=== PATIENT | female | born 1990 | race Caucasian/White ===

== ENCOUNTER 2018-05-14 13:53 | Emergency (ER) | payer OTHER, SELFPAY ==
[2018-05-14 13:53] VITALS: BP 135/74; PULSE 104; RESP 18; TEMP 37.7; O2SAT 97; BMI 34.2
--- NOTE | 2018-05-14 14:09 | EKG12_ITS ---
Test Reason : SOB Blood Pressure : / mmHG Vent. Rate : 095 BPM Atrial Rate : 095 BPM P-R Int : 132 ms QRS Dur : 082 ms QT Int : 346 ms P-R-T Axes : 049 010 -03 degrees QTc Int : 434 ms Normal sinus rhythm Normal ECG Confirmed by LEILANI BRASWELL, LILIANA ([id number]), publication editor NEGRA MAC ([id number]) on 05/20/2018 2:49:14 PM Referred By: AMA Confirmed By:LILIANA DUKE MD
--- NOTE | 2018-05-14 14:15 | RAD_ITS ---
STUDY: X-RAY CHEST REASON FOR EXAM: Female, 27 years old. Chest tightness. Shortness of breath. TECHNIQUE: Single AP portable view of the chest. COMPARISON: Comparison is made with prior study of January 15, 2017. FINDINGS: EKG electrodes are seen. The lungs are clear and expanded. There is no demonstrated pleural abnormality. Normal size heart. Normal mediastinum and vignesh. Normal visualized pulmonary arteries. Normal visualized aortic arch and descending thoracic aorta. Normal visualized thoracic spine. Normal visualized ribs, clavicles, and shoulders. There is no demonstrated abnormality of the visualized soft tissue structures of the upper abdomen. RAD/Chest 1 View (Portable) IMPRESSION: Normal x-ray examination of the chest. Electronically Signed: Byron Simental MD at 14:34 EDT Tel [phone], Service support ,
[2018-05-14 14:26] VITALS: BP 126/73; PULSE 99; RESP 23; O2SAT 96
[2018-05-14 14:30] LABS: Hematocrit 37.7 % (37-47); Hemoglobin 13.1 g/dl (12.0-15.0); Mean Corp Hgb Conc 34.7 g/gl (32-36); Mean Corpuscular Hgb 29.8 pg (27.0-32.0); Mean Corpuscular Volume 85.7 fL (81-99); Mean Platelet Vol. 10.5 fl (6.2-12.0); Platelet Count 191 K/mm3 (150-450); RBC Distribution Width SD 40.7 fl (35.1-43.9); White Blood Count 11.3 K/mm3 (4.4-11.0)
[2018-05-14 14:31] LABS: Scan Indicated on CBC? Y/N NO
[2018-05-14 14:33] VITALS: O2SAT 95
[2018-05-14 14:44] LABS: ALB/GLOB Ratio 0.7 RATIO (0.9-2.4); AST(SGOT) 19 U/L (15-37); Alanine Aminotransfer ALT/SGPT 20 U/L (13-56); Albumin, Serum 2.7 g/dL (3.2-5.0); Alkaline Phosphatase 75 U/L (45-117); Anion Gap 10 (5-15); BUN 8 mg/dL (7-18); BUN/Creat Ratio 13.2 RATIO (10-20); Calcium,Total 8.2 mg/dL (8.5-10.1); Chloride 109 mmol/L (98-107); EST Glomerular Filtration Rate 126 mL/min (>60); Est Glom Filt Rate - Afr Amer 152 mL/min (>60); Estimated Creatinine Clearance 136.96 ml/min; Globulin 3.7 g/dL (2.2-4.2); Glucose 96 mg/dL (74-106); Potassium 3.8 mmol/L (3.5-5.1); Protein, Total 6.4 g/dL (6.4-8.2); Sodium Level 141 mmol/L (136-145)
[2018-05-14 14:48] LABS: Color, Urine Yellow (Yellow); Glucose, Dipstick Normal (Normal); Ketone-Dipstick 5 mg/dl (Negative); Leukocyte Esterase-Dipstick 100 /ul (Negative); Nitrite-Dipstick Negative (Negative); Occult Blood-Urine Negative /ul (Negative); Protein-Dipstick 15 mg/dl (Negative); Specific Gravity, Urine 1.025 (1.002-1.030); Urine Bilirubin Dipstick Negative (Negative); Urine Clarity Clear (Clear); Urine Urobilinogen 1 mg/dl (Normal)
[2018-05-14 14:58] LABS: BNP,B-Type NATRIURETIC PEPTIDE 13.4 pg/mL (0-100)
--- NOTE | 2018-05-14 16:10 | ED.VISSUMM ---
- ER Visit Summary Date of Service: 05/14/18 This patient was evaluated by Dr. Masters in the emergency department. This note was generated with [employer] dictation software. It may contain incorrect words, spelling, and punctuation that were not noted in review of the chart prior to signing ED Disposition - Plan for ED Patient: Disposition: Home or Assisted Living Chief Complaint: Shortness of Breath Instructions: ED Dyspnea Shortness of Breath Referrals: Monika Wang MD [STAFF PHYSICIAN] - 1 Day for another exam
[2018-05-14 16:11] VITALS: PULSE 105; RESP 18; O2SAT 94
[2018-05-14 16:37] VITALS: PULSE 101; RESP 17; O2SAT 97
--- NOTE | 2018-05-15 10:52 | ED.VISSUMM ---
- ER Visit Summary Date of Service: 05/15/18 Chief Complaint: Shortness of breath History of Present Illness: The patient is a [address] Monika Wang. She is a at 28 weeks. She reports she has shortness of breath that began today. States it is mild currently moderate at worst. Is worsened by exertion. Son change with laying flat. She denies any cough, fever, chills, chest pain, ankle swelling, or calf pain. She is asking if I think this is related to anxiety. Patient reports that she had this with her last as well. She denies any vaginal bleeding or discharge. She has normal movement at this time. She denies a headache. Physical Examination: Vitals: Stable. Afebrile. General: Well-nourished and well-developed. Head: Normocephalic atraumatic. Neck: Supple, no lymphadenopathy. No JVD. Nontender. Cardiovascular: Regular rate and rhythm. No murmurs. Respiratory: No respiratory distress. Clear to auscultation bilaterally. Abdominal: Soft, nontender, nondistended, normal bowel sounds. No guarding, rebound, or peritoneal signs. Gravid uterus. Back: Nontender. Extremities: Nontender, no edema. Skin: Normal color, no rash. Neurologic: Alert and oriented ?3. Cranial nerves II through XII are intact. Normal strength and sensation. Psych: Normal affect. Test Results: EKG is sinus at 95 with no acute changes. Troponins negative. PT MAJOR ASSEMBLY LINEMAN is normal. UA is negative other than protein. LFTs marked for an albumin of 2.7. Chem-7 more for chloride of 109 calcium 8.2. CBC is remarkable for white count 11.3. Chest x-ray is normal. Emergency Department Course and Treatment: Patient rested comfortably while in the emergency department. heart tones were 139. Patient has no chest pain or unilateral edema that would suggest a PE. I do not think that exposing her or her fetus the radiation of this is in her best interest. Treatment Plan: Patient was discussed with Nirmala Brumfield, covering for Dr. Wang, and would like the patient to follow-up in the office tomorrow. Patient is happy with this plan and feels improved. Return to the emergency department for any worsening symptoms. Disposition: To home in improved and stable condition. Impression: 1. Dyspnea. 2. Third trimester . This note was generated with [employer] dictation software. It may contain incorrect words, spelling, and punctuation that were not noted in review of the chart prior to signing ED Disposition - Plan for ED Patient: Disposition: Home or Assisted Living Chief Complaint: Shortness of Breath Instructions: ED Dyspnea Shortness of Breath Referrals: Monika Wang MD [STAFF PHYSICIAN] - 1 Day for another exam
--- NOTE | 2018-05-15 10:55 | ED.DCSUM_ITS ---
- ER Visit Summary Date of Service: 05/15/18 Chief Complaint: Shortness of breath History of Present Illness: The patient is a [address] Monika Wang. She is a at 28 weeks. She reports she has shortness of breath that began today. States it is mild currently moderate at worst. Is worsened by exertion. Son change with laying flat. She denies any cough, fever, chills, chest pain, ankle swelling, or calf pain. She is asking if I think this is related to anxiety. Patient reports that she had this with her last as well. She denies any vaginal bleeding or discharge. She has normal movement at this time. She denies a headache. Physical Examination: Vitals: Stable. Afebrile. General: Well-nourished and well-developed. Head: Normocephalic atraumatic. Neck: Supple, no lymphadenopathy. No JVD. Nontender. Cardiovascular: Regular rate and rhythm. No murmurs. Respiratory: No respiratory distress. Clear to auscultation bilaterally. Abdominal: Soft, nontender, nondistended, normal bowel sounds. No guarding, rebound, or peritoneal signs. Gravid uterus. Back: Nontender. Extremities: Nontender, no edema. Skin: Normal color, no rash. Neurologic: Alert and oriented ?3. Cranial nerves II through XII are intact. Normal strength and sensation. Psych: Normal affect. Test Results: EKG is sinus at 95 with no acute changes. Troponins negative. PT CREDIT COMPLIANCE OFFICER is normal. UA is negative other than protein. LFTs marked for an albumin of 2.7. Chem-7 more for chloride of 109 calcium 8.2. CBC is remarkable for white count 11.3. Chest x-ray is normal. Emergency Department Course and Treatment: Patient rested comfortably while in the emergency department. heart tones were 139. Patient has no chest pain or unilateral edema that would suggest a PE. I do not think that exposing her or her fetus the radiation of this is in her best interest. Treatment Plan: Patient was discussed with Nirmala Brumfield, covering for Dr. Wang, and would like the patient to follow-up in the office tomorrow. Patient is happy with this plan and feels improved. Return to the emergency department for any worsening symptoms. Disposition: To home in improved and stable condition. Impression: 1. Dyspnea. 2. Third trimester . This note was generated with [employer] dictation software. It may contain incorrect words, spelling, and punctuation that were not noted in review of the chart prior to signing ED Disposition - Plan for ED Patient: Disposition: Home or Assisted Living Chief Complaint: Shortness of Breath Instructions: ED Dyspnea Shortness of Breath Referrals: Monika Wang MD [STAFF PHYSICIAN] - 1 Day for another exam
== END 2018-05-14 16:43 | disposition home or self-care (01) ==
LOC: ED 14:23
PROVIDERS: Emergency Provider Emergency Medicine
DX: O26.893 Other specified pregnancy related conditions, third trimester (principal); R06.00 Dyspnea, unspecified; Z79.899 Other long term (current) drug therapy; Z3A.28 28 weeks gestation of pregnancy
CPT/HCPCS: 71045; 80053; 81002; 83880; 84484; 85027; 93005; 99284; A4216

== ENCOUNTER 2018-06-16 20:20 | Outpatient (CLI) | payer OTHER, SELFPAY ==
[2018-06-16 21:07] VITALS: BMI 35.2
[2018-06-16 21:11] LABS: Hematocrit 35.9 % (37-47); Hemoglobin 12.5 g/dl (12.0-15.0); International Normalized Ratio 0.9; Mean Corp Hgb Conc 34.8 g/gl (32-36); Mean Corpuscular Volume 86.3 fL (81-99); Mean Platelet Vol. 10.4 fl (6.2-12.0); Partial Thromboplast Time 25.5 Seconds (24.1-36.2); Platelet Count 183 K/mm3 (150-450); Prothrombin Time (Protime)PT. 12.6 SECONDS (11.7-14.9); RBC Distribution Width CV 13.3 % (11.6-14.6); RBC Distribution Width SD 41.3 fl (35.1-43.9); Red Blood Count 4.16 M/mm3 (4.2-5.4); Scan Indicated on CBC? Y/N NO; White Blood Count 12.5 K/mm3 (4.4-11.0)
[2018-06-16 21:16] LABS: AST(SGOT) 16 U/L (15-37); Alanine Aminotransfer ALT/SGPT 15 U/L (13-56); Creatinine, Serum 0.64 mg/dL (0.55-1.02); EST Glomerular Filtration Rate 118 mL/min (>60); Est Glom Filt Rate - Afr Amer 143 mL/min (>60); Uric Acid 4.1 mg/dL (2.6-6.0)
[2018-06-16 22:03] LABS: Protein, Urine (Random) < 6.0 mg/dL (<11.9)
--- NOTE | 2018-06-21 12:36 | OB.TRI.NOTE ---
- Problem List (1) False labor Status: Acute (2) Elevated blood pressure complicating , antepartum Status: Acute History of Present Illness Date of Service: 06/05/18 Was patient seen by the physician?: No Reason For Visit: R/O, ELEVATED BLOOD PRESSURE Final SILVIA Source: US <20 weeks Allergies amoxicillin [From Augmentin] Adverse Reaction (Verified 06/16/18 22:54) Diarrhea clavulanic acid [From Augmentin] Adverse Reaction (Verified 06/16/18 22:54) Diarrhea NST - FHR Rate Baby A Baseline: 120 Variability:: Moderate Accelerations:: 15 x 15 Decelerations:: Variable NST Reactive:: Yes Uterine Activity:: Irregular Impression/Plan A:Elevated Blood Pressure antepartum P: 1) Pre-e labs normal. D/C home 2) Follow up in office tomorrow
== END 2018-06-16 22:30 | disposition home or self-care (01) ==
LOC: WPOUT 20:26 → WP 20:26
PROVIDERS: Advanced Practice Midwife; Visit Provider Obstetrics & Gynecology
DX: O47.03 False labor before 37 completed weeks of gestation, third trimester (principal); O26.893 Other specified pregnancy related conditions, third trimester; R03.0 Elevated blood-pressure reading, without diagnosis of hypertension; R07.9 Chest pain, unspecified; Z3A.33 33 weeks gestation of pregnancy
CPT/HCPCS: 59025; 59050; 82565; 82570; 84156; 84450; 84460; 84550; 85027; 85610; 85730; 99218; G0378

== ENCOUNTER 2018-06-16 22:51 | Emergency (ER) | payer OTHER, SELFPAY ==
[2018-06-16 22:52] VITALS: BP 120/74; PULSE 96; RESP 16; TEMP 36.9; O2SAT 97; BMI 34.4
--- NOTE | 2018-06-17 00:19 | ED.DCSUM_ITS ---
- ER Visit Summary Date of Service: 06/17/18 Chief Complaint: Chest pain and right shoulder pain. History of Present Illness: The patient is a 27 F no senior past medical history. Ab0. Currently 33 weeks . Patient states that for the last 5 weeks she has had chest pain across her chest. She was seen ER and evaluation which was negative. She has never had a DVT or PE. She denies any recent travel or surgery. She is . She had a similar episode when she was before and then noninvasive studies of her lower extremities and had no signs of DVT at that time. She denies any pleuritic nature of the pain. She denies any significant shortness of breath. She denies any hemoptysis. She has a mild nonproductive cough. Denies any leg swelling or calf pain. She also has some right shoulder pain is atraumatic. She is right-hand dominant. Physical Examination: Well-appearing young female. Vital signs are stable afebrile. Pulse ox 97% room air no signs of hypoxia. No distress. H EENT exam unremarkable normal. Neck nontender no lymphadenopathy. Lungs clear to auscultation bilaterally. Heart regular rate and rhythm no murmur. Chest wall nontender. No ecchymosis or bruising. No subcu air. Abdomen is soft, nondistended normal bowel sounds no peritoneal signs. Gravid nontender uterus. The right upper quadrant is completely nontender. No Arceo sign. She is moving all 4 extremities. Neurovascular intact. Equal symmetrical radial pulses. Calves are nontender without edema or cords. No swelling in her lower extremities. Back nontender. Neurologic exam normal. She has full range of motion her right shoulder. There is no trauma. No redness or warmth. Test Results: EKG shows a sinus rhythm rate 94 with no acute abnormality and no change from prior EKG from May. Emergency Department Course and Treatment: At this time I do not feel patient needs any further workup. Clinically I do not think this is a DVT or PE. It is diffuse discomfort. The pain is not pleuritic. She has no hemoptysis. Her exam is benign. I did explain to her that gallbladder disease could cause of the right shoulder pain but she is absolutely no right upper quadrant tenderness at this time. Treatment Plan: Discharge home. Follow-up with her DIRECTOR QUALITY SYSTEMS doctor Monika Wang. Disposition: Discharge Impression: Chest pain uncertain etiology 33 weeks This note was generated with [employer] dictation software. It may contain incorrect words, spelling, and punctuation that were not noted in review of the chart prior to signing ED Disposition - Plan for ED Patient: Chief Complaint: Chest Pain Referrals: Care Physician,No Primary [Primary Care Provider] -
--- NOTE | 2018-06-17 00:19 | ED.DEP ---
ED Disposition - Plan for ED Patient: Disposition: Home or Assisted Living Chief Complaint: Chest Pain Instructions: ED Chest Pain Atypical Unkn Cause Referrals: Monika Wang MD [STAFF PHYSICIAN] - 3-5 Days if not improving Additional Instructions: Tylenol for any pain. Not improving follow-up with your ANALYST BUSINESS ANALYSIS. Return to ER feeling worse.
[2018-06-17 00:35] VITALS: BP 135/77; PULSE 95; RESP 16
== END 2018-06-17 00:37 | disposition home or self-care (01) ==
PROVIDERS: Emergency Provider Emergency Medicine
DX: O26.893 Other specified pregnancy related conditions, third trimester (principal); R07.9 Chest pain, unspecified; M25.511 Pain in right shoulder; Z3A.33 33 weeks gestation of pregnancy; Z79.899 Other long term (current) drug therapy
CPT/HCPCS: 93005; 99282; J7030

== ENCOUNTER 2018-07-21 17:34 | Outpatient (CLI) | payer OTHER, SELFPAY ==
[2018-07-21 17:59] VITALS: BMI 35.9
[2018-07-21 18:41] LABS: AST(SGOT) 13 U/L (15-37); Alanine Aminotransfer ALT/SGPT 14 U/L (13-56); Creatinine, Serum 0.88 mg/dL (0.55-1.02); EST Glomerular Filtration Rate 82 mL/min (>60); Est Glom Filt Rate - Afr Amer 99 mL/min (>60); Estimated Creatinine Clearance 93.38 ml/min; Uric Acid 4.7 mg/dL (2.6-6.0)
[2018-07-21 18:43] LABS: Hematocrit 37.6 % (37-47); Hemoglobin 12.7 g/dl (12.0-15.0); Mean Corp Hgb Conc 33.8 g/gl (32-36); Mean Corpuscular Volume 85.8 fL (81-99); Mean Platelet Vol. 10.9 fl (6.2-12.0); Platelet Count 179 K/mm3 (150-450); RBC Distribution Width CV 13.2 % (11.6-14.6); RBC Distribution Width SD 41.3 fl (35.1-43.9); Red Blood Count 4.38 M/mm3 (4.2-5.4); White Blood Count 11.5 K/mm3 (4.4-11.0)
[2018-07-21 18:46] LABS: Scan Indicated on CBC? Y/N NO
[2018-07-21 18:51] LABS: Prothrombin Time (Protime)PT. 12.9 SECONDS (11.7-14.9)
[2018-07-21 18:52] LABS: Partial Thromboplast Time 27.6 Seconds (24.1-36.2)
[2018-07-21 19:14] LABS: Protein, Urine (Random) 12.3 mg/dL (<11.9); Protein:Creat Ratio 102 mg/g CRE (0-200)
[2018-07-21] MEDS: DiphenhydrAMINE 50 MG/ML Syringe 25 MG IV (19:16)
[2018-07-21] MEDS: 0.9% NaCl Peripheral Flush Adult/Peds IV (19:17)
[2018-07-21] MEDS: Lactated Ringers 1,000 ML 999 ML IV (19:17)
--- NOTE | 2018-07-21 20:45 | NURSING ---
[facility] and evaluation needed. [facility] states pt was seen in office today. headache treated and pt now rates 1/10 down from 6/10 what pt rated previously before Benadryl and IV bolus. [facility] states no concern for pre-e and pt is okay for discharge.
--- NOTE | 2018-07-29 12:50 | OB.TRI.NOTE ---
History of Present Illness Date of Service: 07/21/18 Was patient seen by the physician?: No Reason For Visit: RULE OUT LABOR Date of Service: 07/21/18 Final SILVIA: 08/02/18 Final SILVIA Source: US <20 weeks Gestational age: 39 Weeks and 3 Days History of Present Illness: Presented to L&D for headache and elevated BP and sent from office. Allergies clavulanic acid [From Augmentin] Adverse Reaction (Mild, Verified 07/21/18 18:07) Diarrhea amoxicillin [From Augmentin] Adverse Reaction (Verified 07/21/18 18:07) Diarrhea NST - FHR Rate Baby A Baseline: 135 Variability:: Moderate Accelerations:: 15 x 15 Decelerations:: None NST Reactive:: Yes Uterine Activity:: Irregular Impression/Plan A: Full term Headache P: 1) Serial blood pressures and pre-eclampsia labs. 24 hour urine. 2) IV fluid bolus given 3) Benadryl 25mg IV once for headache. 4) BP normal range, headache improved, D/C home.
== END 2018-07-21 20:53 | disposition home or self-care (01) ==
LOC: WP 18:13 → WPOUT 18:13
PROVIDERS: Visit Provider Advanced Practice Midwife
DX: O26.893 Other specified pregnancy related conditions, third trimester (principal); Z3A.39 39 weeks gestation of pregnancy; R51 Headache
CPT/HCPCS: 96361; 96374; 36415; 59025; 59050; 82565; 82570; 84156; 84450; 84460; 84550; 85027; 85610; 85730; 86850; 86900; 99218; J7120; A4216; G0378

== ENCOUNTER 2018-07-31 07:15 | Inpatient (IN) | payer OTHER, SELFPAY ==
[2018-07-31 07:20] VITALS: BMI 35.6
[2018-07-31] MEDS: Lactated Ringers 1,000 ML 50 ML IV ×3 (07:50→14:30)
[2018-07-31 07:58] LABS: Hematocrit 39.2 % (37-47); Mean Corp Hgb Conc 33.2 g/gl (32-36); Mean Corpuscular Hgb 28.4 pg (27.0-32.0); Mean Corpuscular Volume 85.8 fL (81-99); Mean Platelet Vol. 10.7 fl (6.2-12.0); Platelet Count 172 K/mm3 (150-450); RBC Distribution Width CV 13.4 % (11.6-14.6); RBC Distribution Width SD 41.8 fl (35.1-43.9); Red Blood Count 4.57 M/mm3 (4.2-5.4); White Blood Count 12.9 K/mm3 (4.4-11.0)
[2018-07-31 08:00] LABS: Scan Indicated on CBC? Y/N NO
[2018-07-31] MEDS: Oxytocin 30 units/NS 500 ml 30 UNITS/500 ML IV.SOLN IV (08:03)
[2018-07-31 09:05] LABS: Partial Thromboplast Time 27.3 Seconds (24.1-36.2)
[2018-07-31 09:48] LABS: AST(SGOT) 18 U/L (15-37); Alanine Aminotransfer ALT/SGPT 13 U/L (13-56); Creatinine, Serum 0.72 mg/dL (0.55-1.02); EST Glomerular Filtration Rate 103 mL/min (>60); Est Glom Filt Rate - Afr Amer 124 mL/min (>60); Estimated Creatinine Clearance 114.13 ml/min; Uric Acid 5.6 mg/dL (2.6-6.0)
[2018-07-31] MEDS: Ondansetron 4 MG/2 ML Vial IV (14:56)
[2018-07-31] MEDS: Oxytocin 30 units/NS 500 ml 30 UNITS/500 ML IV.SOLN 334 UNITS IV (19:01)
--- NOTE | 2018-07-31 19:08 | PCM.OB.VAG ---
Vaginal Delivery Maternal Presentation: Medically Indicated Induction Method of Induction: Pitocin, Amniotomy Medical Reason for Induction: Gestational Hypertension Amniotic Membrane Rupture Type: Artificial Amniotic Fluid Description: Clear Final SILVIA: 08/02/18 Final SILVIA Source: US <20 weeks Gestational age: 39 Weeks and 5 Days Date of Procedure: 07/31/18 Pre-Operative Diagnosis: labor Post-Operative Diagnosis: same Surgery/ Procedure Performed: Spontaneous Vaginal Delivery Type of Anesthesia: Epidural Description of Procedure: A vigorous female infant was delivered LISA over an intact perineum. A loose nuchal cord ?1 was easily reduced. The remainder the was delivered with maternal pushing and gentle traction only in less than 30 seconds. The Pitocin infusion was initiated for active management of the third stage. The cord was clamped and cut after 1 minute. The infant was attended to by the waiting nursing staff. The placenta was delivered spontaneously and intact. The cervix and vagina were intact. Sponge and needle counts were correct. A vaginal sweep was completed by me. Presentation: LISA Placental Delivery Description: Spontaneous Placenta Disposition: [facility] Cord Vessel Description: 3 Vessels Nuchal Cord Compression: Without compression Cord Entanglement: Around neck x 1, loose Drain: [place] to straight drain Estimated Blood Loss: 300 Infant A gender: Female (1 minute): 9 (5 minute): 9 Episiotomy Description: None Laceration: None Medications given after delivery: IV Pitocin Complications: None
--- NOTE | 2018-07-31 19:13 | HP.PCM_ITS ---
History Date of Admission: 07/31/18 Final SILVIA: 08/02/18 Final SILVIA Source: US <20 weeks Gestational age: 39 Weeks and 5 Days History of this : This is a 27 year-old, G [], P [], at 39 weeks gestational age. Allergies clavulanic acid [From Augmentin] Adverse Reaction (Mild, Verified 07/21/18 18:07) Diarrhea amoxicillin [From Augmentin] Adverse Reaction (Verified 07/21/18 18:07) Diarrhea Home Medications: Home Medications Vit No.130/Iron/FA [ Vitamins] 1 each PO DAILY 07/10/16 Ranitidine [Zantac] 150 mg PO BID 02/21/17 Valacyclovir HCl [Valtrex] 500 mg PO BID 02/21/17 Smoking Status: Never smoker Number of Fetus(es): 1 Heart Tracing: normal baseline, moderate variability, + accels, no recurrent decels on admission TOCO Analysis: irreg ctxs History Past Pregnancies: Past Pregnancies Delivery Date Name GA/Weeks Outcome Route Weight Infant Gender Labor Length Anesthesia Delivery Location Provider FOB Expected Infant Delivery Method: Spontaneous Vaginal Review of Systems Constitutional: Denies: Anorexia, Chills, Fever Cardiovascular: Denies: Chest Pain, Chest Pressure Respiratory: Denies: Cough, Shortness of Breath Skin: Denies: Rash Physical Exam General: Alert, Cooperative, No apparent distress Cardiovascular: Regular rate Lungs: Normal air movement Abdomen: Soft, Non Tender, Non-Distended, Gravid Extremities:: Other - edema1+ SUPERVISOR COKE HANDLING: Normal external genitalia Estimated gestational size: Appropriate for gestational size Presentation: Cephalic Cervix Dilation (cm): 3 Station: -2 Effacement (%): 70 Assessment/Plan All Active Problems False labor (Acute) Elevated blood pressure complicating , antepartum (Acute) 27-year-old 2 para 1 female at 39-5/7 weeks gestation with mild gestational hypertension. Blood pressures yesterday in the office for mildly elevated at 130s over 80s-90s. She was scheduled for induction today. Estimated weight is less than 4500 mg and pelvis clinically adequate to expect vaginal delivery. Patient may have epidural as needed may use nitrous oxide or Nubain as needed for pain control. Labs are normal today.
[2018-07-31] MEDS: Oxytocin 30 units/NS 500 ml 30 UNITS/500 ML IV.SOLN 167 UNITS IV (19:31)
[2018-07-31] MEDS: Acetaminophen 500 MG Tablet 1000 MG PO (20:08)
[2018-07-31] MEDS: 0.9% Saline Lock 10 ML Syringe IV (20:33)
[2018-07-31 21:10] VITALS: BP 151/69; PULSE 99; RESP 18; TEMP 35.8
[2018-08-01] MEDS: Naproxen 250 MG Tablet PO ×2 (00:22→11:31)
[2018-08-01 00:23] VITALS: BP 139/75; PULSE 103; RESP 18; TEMP 37.5
--- NOTE | 2018-08-01 00:24 | SUR.OPER ---
Pt up to bathroom at 0015 with assist of myself and Emil RN. Pt having heaviness in left leg, but tolerated activity well. Encouraged to call when needs to be up next.
[2018-08-01 03:50] VITALS: BP 130/61; PULSE 93; RESP 18; TEMP 36.9
[2018-08-01 08:00] VITALS: BP 113/72; PULSE 80; RESP 16; TEMP 36.7
--- NOTE | 2018-08-01 08:21 | PCM.PN.OB ---
Subjective: pain well controlled, average lochial, no N/V - Physical Exam General: Alert, Cooperative, No apparent distress Vital Signs Temp Pulse Resp BP 98.1 F 80 16 113/72 08/01/18 08:00 08/01/18 08:00 08/01/18 08:00 08/01/18 08:00 Oxygen Delivery Method Room Air Weight: 103.419 kg Body Mass Index (BMI) 35.6 Intake and Output for Last 24 Hours 07/30/18 07/31/18 08/01/18 23:59 23:59 23:59 Intake Total 334 / 334 Output Total 1150 / 1150 400 / 400 Balance -816 / -816 -400 / -400 Laboratory Tests Past 24 Hrs 07/31/18 07/31/18 07/31/18 07:35 07:35 07:35 PT 13.0 INR 1.0 APTT 27.3 Creatinine 0.72 Estim Creat Clear Calc 114.13 Est GFR (MDRD) Af Amer 124 Est GFR (MDRD) Non-Af 103 Uric Acid 5.6 AST 18 ALT 13 Blood Type A POSITIVE Antibody Screen NEGATIVE Medical Necessity - Tobacco Use Smoking Status: Never smoker Assessment/Plan All Active Problems False labor (Acute) Elevated blood pressure complicating , antepartum (Acute) PPD#1 doing well routine care infant and doing well possible d/c home later today
--- NOTE | 2018-08-01 08:25 | DCINST_ITS ---
Discharge Diet: No Restrictions Discharge Activity: Return to Normal Activity, May not drive while taking narcotic pain medications., May Shower May resume sexual activity in: 4-6 weeks Additional Activity Instructions:: Nothing in the vagina for 4-6 weeks. You may return to work/school in 6 weeks. Call your doctor if your incision/area has: Continuous Slow Oozing, Sudden Increased Bleeding, Increased Pain/ Swelling, Increased Redness, Foul Smelling Discharge Additional Instructions: If you experience any of the following, contact your healthcare provider. * Bleeding that soaks a pad every hour for 2 hours * Fever 100.4 or higher * Unrelieved incision or abdominal pain * Swelling, redness, discharge or bleeding from your incision or episiotomy site * Your incision begins to separate * Problems urinating (including inability to urinate or burning while urinating). * Visual changes * Severe headache * Flu-like symptoms * Pain or redness in one of both of your breasts * Pain, warmth, tenderness or swelling in your legs, especially the calf area * Frequent nausea and vomiting * Symptoms of depression or anxiety If you experience any of the following, call 911 or go to the nearest Emergency Room. * Chest pain * Problems breathing * Seizure activity * Partial or complete paralysis of a body part, slurred speech, weakness or drooping of the face, or a sudden inability to walk or hold your balance Allergies/Adverse Reactions: Allergies clavulanic acid [From Augmentin] Adverse Reaction (Mild, Verified 07/21/18 18:07) Diarrhea amoxicillin [From Augmentin] Adverse Reaction (Verified 07/21/18 18:07) Diarrhea Medications to take at Discharge Vit No.130/Iron/FA [ Vitamins] 1 each PO DAILY 07/10/16 Ibuprofen [Motrin] 800 mg PO TID PRN PRN #60 tablet 08/01/18 The following prescriptions were given: Ibuprofen [Motrin] 800 mg PO TID PRN PRN #60 tablet PRN Reason: Pain Please Follow Up With: Monika Wang MD - [phone] When: Call to make an appointment with your doctor's office in 2 and 6 weeks. If you had elevated Blood Pressure or 4th degree laceration you will need to be seen in 2 weeks. Primary Care Physician: Care Physician,No Primary [Primary Care Provider] - Test Results: Test results from this visit will be discussed in further detail at your follow- up appointment, if applicable.
[2018-08-01 11:36] VITALS: BP 125/74; PULSE 90; RESP 16; TEMP 36.7; O2SAT 96
[2018-08-01 16:00] VITALS: BP 123/76; PULSE 80; RESP 16; TEMP 36.6
[2018-08-01 19:35] VITALS: BP 110/80; PULSE 92; RESP 18; TEMP 36.8; O2SAT 99
== END 2018-08-01 21:42 | disposition home or self-care (01) | DRG 775 ==
PROVIDERS: Admitting Provider Obstetrics & Gynecology; Referring Provider Obstetrics & Gynecology; Visit Provider Obstetrics & Gynecology
DX: O13.4 Gestational [pregnancy-induced] hypertension without significant proteinuria, complicating childbirth (principal); O69.81X0 Labor and delivery complicated by cord around neck, without compression, not applicable or unspecified; K21.9 Gastro-esophageal reflux disease without esophagitis; Z3A.39 39 weeks gestation of pregnancy; Z37.0 Single live birth
CPT/HCPCS: 59025; 59050; 82565; 84450; 84460; 84550; 85027; 85610; 85730; 86850; 86900; 99218; J7120; A4216; G0378; J2405

== ENCOUNTER 2018-08-08 13:25 | Outpatient (CLI) | payer OTHER, SELFPAY | END 2018-08-08 13:55 | disposition home or self-care (01) | LOC: WPOUT 13:27 → WP 13:28 | PROVIDERS: Referring Provider Obstetrics & Gynecology; Visit Provider Obstetrics & Gynecology | DX: Z39.1 Encounter for care and examination of lactating mother (principal) | CPT/HCPCS: 96152 ==

== ENCOUNTER 2019-10-13 13:58 | Emergency (ER) | payer BC, SELFPAY ==
[2019-10-13 13:59] VITALS: BP 145/84; PULSE 92; RESP 15; TEMP 36.6; O2SAT 99; BMI 32.8
--- NOTE | 2019-10-13 14:03 | EKG12_ITS ---
Test Reason : SOB Blood Pressure : / mmHG Vent. Rate : 089 BPM Atrial Rate : 089 BPM P-R Int : 144 ms QRS Dur : 088 ms QT Int : 366 ms P-R-T Axes : 063 018 021 degrees QTc Int : 445 ms Normal sinus rhythm with sinus arrhythmia Normal ECG Confirmed by LEILANI BRASWELL, LILIANA ([id number]), order editor NEGRA MAC ([id number]) on 10/14/2019 11:23:47 AM Referred By: BERNIE Confirmed By:LILIANA DUKE MD
--- NOTE | 2019-10-13 14:42 | RAD_ITS ---
STUDY: X-RAY CHEST REASON FOR EXAM: Female, 28 years old. Chest pain and shortness of breath. TECHNIQUE: PA and lateral views of the chest. COMPARISON: Comparison is made with prior study dated May 14, 2018. FINDINGS: EKG electrodes are seen. The lungs are clear and expanded. Scattered calcified granulomas. There is no demonstrated pleural abnormality. Normal size heart. Normal mediastinum and vignesh. Normal visualized pulmonary arteries. Normal visualized aortic arch and descending thoracic aorta. Normal visualized thoracic spine. Normal visualized ribs, clavicles, and shoulders. There is no demonstrated abnormality of the visualized soft tissue structures of the upper abdomen. RAD/Chest PA and Lateral IMPRESSION: No acute abnormality is seen. Electronically Signed: Byron Simental, at 15:43 EST , Service support ,
[2019-10-13 15:02] LABS: Absolute Lymphocyte Count 2.13 X10^3/uL (0.83-4.51); Absolute Neutrophil Count 6.1 X10^3/uL (2.0-7.7); Basophil# 0.02 X10^3/uL; Basophil% 0.2 % (0-1); Eosinophil# 0.09 X10^3/uL; Hematocrit 40.7 % (37-47); Hemoglobin 13.9 g/dL (12.0-15.0); Lymphocyte # 2.13 X10^3/ul (4.0); Lymphocyte % 24.2 % (19-41); Mean Corp Hgb Conc 34.2 g/dL (32-36); Mean Corpuscular Hgb 29.4 pg (27.0-32.0); Mean Corpuscular Volume 86.2 fL (81-99); Mean Platelet Vol. 10.2 fl (6.2-12.0); Monocyte# 0.48 X10^3/uL; Monocyte% 5.4 % (0-10); NRBC Flagged by Analyzer 0 % (0-5); Neutrophil # 6.06 X10^3/uL (2.7-7.7); Neutrophil % 68.9 % (47-70); Platelet Count 224 K/mm3 (150-450); RBC Distribution Width CV 11.9 % (11.6-14.6); RBC Distribution Width SD 37.6 fl (35.1-43.9); Red Blood Count 4.72 M/mm3 (4.2-5.4); White Blood Count 8.8 K/mm3 (4.4-11.0)
[2019-10-13 15:06] VITALS: O2SAT 100
[2019-10-13 15:13] LABS: Bacteria 0 SEEN /hpf (None Seen); Mucous, Urine 0 SEEN /hpf (<or=2+); Red Blood Cells-Urine 0 SEEN /hpf (0-5); White Blood Cells 0 SEEN /hpf (0-5)
[2019-10-13 15:14] LABS: Color, Urine Straw (Yellow); Glucose, Dipstick Normal (Normal); Ketone-Dipstick Negative (Negative); Leukocyte Esterase-Dipstick Negative /ul (Negative); Nitrite-Dipstick Negative (Negative); Occult Blood-Urine Negative /ul (Negative); Protein-Dipstick Negative (Negative); Specific Gravity, Urine 1.005 (1.002-1.030); Urine Bilirubin Dipstick Negative (Negative); Urine Clarity Clear (Clear); Urine Urobilinogen Normal (Normal); Urine pH 6.5 (5.0 - 8.0)
[2019-10-13 15:16] LABS: Internal QC Validated? YES +Cl - CLEAR BKGD; Pregnancy, Urine Negative Negative
--- NOTE | 2019-10-13 15:17 | ED.DCSUM_ITS ---
History of Present Illness Chief Complaint: Shortness of Breath Informant: Patient Onset: Today Timing: Continuous Quality: Heaviness, Tightness Location: Substernal, - - center of chest Narrative: Patient is a 28-year-old female with history of anxiety presenting with chest pain. Patient states since 8 AM this morning she is had pressure in the center of her chest and her upper chest. She does feel short of breath with it. She denies any cough or wheezing. She denies any associated upper respiratory symptoms. Patient notes that she had similar episodes when she was in her third trimester and attributed to anxiety. Patient denies any use of estrogen or any history of DVT or PE. She denies any swelling of her legs. She denies abdominal pain. She does have some associated nausea but no vomiting. She compensates she also has some reflux. She denies any history of cardiac disease. She denies any family history of cardiac disease at a young age. She denies any other complaints at this time. She denies any fever, neck pain or rash. Patient does report increased stress in her life. She states he has 2 small children and they recently bought a house a month ago and it has been a nightmare. PE Risk Factors: Negative for: Recent Travel/Surgery, Recenet Immobilization, Prior DVT or PE, Cancer, OCP + Smoking + >/=35 Past Medical History - Allergies and Home Meds Allergies/Adverse Reactions: Allergies clavulanic acid [From Augmentin] Adverse Reaction (Mild, Verified 07/21/18 18:07) Diarrhea amoxicillin [From Augmentin] Adverse Reaction (Verified 07/21/18 18:07) Diarrhea Primary Care Physician: Care Physician,No Primary [Primary Care Provider] - Surgical History: tonsillectomy, - - Thyroidectomy- partial Lives: Spouse/ Significant Other Smoking Status: Never smoker Review of Systems General: Denies: Chills, Fever, Sweats Eyes: Denies: Visual changes - bilaterally, Diplopia ENT: Denies: Rhinorrhea, Sore throat Cardiovascular: Reports: Chest pain. Denies: Palpitations Respiratory: Reports: Dyspnea. Denies: Cough, Dyspnea on exertion Gastrointestinal: Reports: Nausea. Denies: Abdominal pain, Vomiting, Diarrhea, Melena, Hematochezia Genitourinary: Denies: Dysuria, Hematuria, Frequency Musculoskeletal: Denies: Back pain, Extremity Pain Skin: Denies: Rash, Wounds Neurological: Denies: Headache, Weakness, Numbness Physical Exam Vital Signs/Narrative: Vital Signs Temp Pulse Resp BP Pulse Ox 10/13/19 15:06 100 10/13/19 13:59 97.9 F 92 15 145/84 H 99 Inital Vital Signs reviewed: Yes General: Well nourished, Well developed, No Acute Distress Head: Normocephalic, Atraumatic Eyes: Perrl, EOMI ENT: Moist mucous membranes, No rhinorrhea Neck: Supple, Nontender Cardiovascular: Regular rate, Regular rhythm, No murmurs Respiratory: No distress, CTA bilaterally, Chest nontender Abdomen: Soft, Nontender, Nondistended, Normal bowel sounds Back: Nontender, Normal Inspection Extremities: Nontender, No edema Skin: Normal color, No rash Neurological: Alert, Oriented x3, Cranial nerves II-XII grossly intact, Normal Strength, Normal Sensation Psychological: Normal affect, Normal Mood Diagnostic/Tx/Re-eval Chest X-Ray - ED: 2 View, Read by ED Physician, Read by Radiologist, No Acute Disease Clinical Impression(s) from Imaging Studies Chest X-Ray 10/13/19 14:42 IMPRESSION: No acute abnormality is seen. Electronically Signed: Byron Kamille, at 15:43 EST , Service support , Laboratory Data 10/13/19 10/13/19 10/13/19 14:55 14:55 15:10 WBC 8.8 RBC 4.72 Hgb 13.9 Hct 40.7 MCV 86.2 MCH 29.4 MCHC 34.2 RDW Std Deviation 37.6 RDW Coeff of Philip 11.9 Plt Count 224 MPV 10.2 Immature Gran % (Auto) 0.300 Neut % (Auto) 68.9 Lymph % (Auto) 24.2 [place] % (Auto) 5.4 Eos % (Auto) 1.0 Baso % (Auto) 0.2 Absolute Neuts (auto) 6.1 Absolute Lymphs (auto) 2.13 Nucleated RBC % 0 Sodium 144 Potassium 3.8 Chloride 113 H Carbon Dioxide 25.0 Anion Gap 6 BUN 13 Creatinine 1.00 Estim Creat Clear Calc 81.45 Est GFR (MDRD) Af Amer 85 Est GFR (MDRD) Non-Af 70 BUN/Creatinine Ratio 13.0 Glucose 98 Calcium 9.0 Troponin I < 0.015 Urine Color Urine Clarity Urine pH Ur Specific [place] Urine Protein Urine Glucose (UA) Urine Ketones Urine Occult Blood Urine Nitrite Urine Bilirubin Urine Urobilinogen Ur Leukocyte Esterase Urine RBC Urine WBC Ur Squamous Epith Cells Urine Bacteria Urine Mucus Urine Test Negative 10/13/19 15:10 WBC RBC Hgb Hct MCV MCH MCHC RDW Std Deviation RDW Coeff of Philip Plt Count MPV Immature Gran % (Auto) Neut % (Auto) Lymph % (Auto) [place] % (Auto) Eos % (Auto) Baso % (Auto) Absolute Neuts (auto) Absolute Lymphs (auto) Nucleated RBC % Sodium Potassium Chloride Carbon Dioxide Anion Gap BUN Creatinine Estim Creat Clear Calc Est GFR (MDRD) Af Amer Est GFR (MDRD) Non-Af BUN/Creatinine Ratio Glucose Calcium Troponin I Urine Color Straw Urine Clarity Clear Urine pH 6.5 Ur Specific [place] 1.005 Urine Protein Negative Urine Glucose (UA) Normal Urine Ketones Negative Urine Occult Blood Negative Urine Nitrite Negative Urine Bilirubin Negative Urine Urobilinogen Normal Ur Leukocyte Esterase Negative Urine RBC 0 SEEN Urine WBC 0 SEEN Ur Squamous Epith Cells 0-5 SEEN Urine Bacteria 0 SEEN Urine Mucus 0 SEEN Urine Test - Rhythm Strip Rhythm Strip: Sinus Rhythm Rate: 89 Ectopy: None - EKG Initial EKG Interpretation: Sinus Rhythm, - - Normal sinus rhythm at a rate of 89 Sinus arrhythmia SC interval 144 QRS 88 QTc 445 Normal axis Nonspecific T wave inversion in lead III - Medical Decision Making Patient is evaluated for chest tightness and associated shortness of breath. She appears nontoxic and in no acute distress. Patient is low risk for ACS. Troponin is negative. Her pain started over 6 hours ago and I feel a negative troponin effectively rules out ACS. Patient not having concerning EKG changes. She is PE RC negative. D-dimers not indicated. Possible that this could related to anxiety or reflux. Patient does note that she intermittently has discomfort in her epigastric and substernal region. Does seem to be affected by eating. Patient is counseled to start taking [id number] Pepcid/Tums as needed. She is instructed to follow-up with her primary care doctor. At this time I believe that she is safe for outpatient follow-up. Patient is counseled on signs and symptoms requiring return to the emergency room. Patient verbali zes agreement and understand this plan. Patient discharged home in stable and improved condition. ED Disposition - Plan for ED Patient: Disposition: Home or Assisted Living Diagnosis: Chest pain Instructions: CHEST PAIN, Uncertain Cause Additional Instructions: Follow-up with your primary care doctor later this week or next week for further evaluation. At this time I think you are safe to go home. Return the emergency room if you have worsening symptoms.
[2019-10-13 15:18] LABS: Anion Gap 6 (5-15); BUN 13 mg/dL (7-18); Chloride 113 mmol/L (98-107); EST Glomerular Filtration Rate 70 mL/min (>60); Est Glom Filt Rate - Afr Amer 85 mL/min (>60); Estimated Creatinine Clearance 81.45 ml/min; Glucose 98 mg/dL (74-106); Potassium 3.8 mmol/L (3.5-5.1); Sodium Level 144 mmol/L (136-145)
[2019-10-13 15:20] LABS: Squamous Epithelial Cells - UA 0-5 SEEN /hpf (5-10)
[2019-10-13 16:10] VITALS: BP 142/87; PULSE 74; RESP 16; O2SAT 99
== END 2019-10-13 16:11 | disposition home or self-care (01) ==
PROVIDERS: Emergency Provider Emergency Medicine
DX: R07.9 Chest pain, unspecified (principal); R06.02 Shortness of breath; R11.0 Nausea; K21.9 Gastro-esophageal reflux disease without esophagitis; F41.9 Anxiety disorder, unspecified; Z79.899 Other long term (current) drug therapy; Z88.1 Allergy status to other antibiotic agents; Z88.0 Allergy status to penicillin
CPT/HCPCS: 71046; 80048; 81001; 81025; 84484; 85025; 93005; 99284; A4216

== ENCOUNTER 2021-04-14 10:02 | Emergency (ER) | payer MEDICAID, SELFPAY ==
[2021-04-14 10:03] VITALS: BP 141/72; PULSE 95; RESP 16; TEMP 36.7; O2SAT 100; BMI 39.4
--- NOTE | 2021-04-14 10:17 | EKG12_ITS ---
Test Reason : CP Blood Pressure : / mmHG Vent. Rate : 093 BPM Atrial Rate : 093 BPM P-R Int : 132 ms QRS Dur : 092 ms QT Int : 380 ms P-R-T Axes : 059 049 022 degrees QTc Int : 472 ms Sinus rhythm with marked sinus arrhythmia with occasional Premature ventricular complexes Otherwise normal ECG Confirmed by LEILANI BRASWELL, LILIANA ([id number]), newspaper copy editor AUDREY FISCHER ([id number]) on 04/17/2021 1:30:59 PM Referred By: ANDRY/ROMAN Confirmed By:LILIANA DUKE MD
--- NOTE | 2021-04-14 10:18 | EDS_ITS ---
HPI History of Present Illness Chief Complaint: Chest Pain Detail of Chief Complaint: Chest pain for the last 5 days Onset/Context/Timing Current Severity: 03/13 Associated Symptoms: Negative for Nausea Narrative Narrative: Patient presents to the emergency department with complaint of chest discomfort for the last 5 days. Patient states that she has had intermittent discomfort and yesterday became more pronounced. She states this morning she woke up with the discomfort so she comes in for evaluation. She has had similar episodes multiple times in the past and has come to the emergency department for these. Patient has anxiety and took her self off 3 weeks ago the Lexapro because she found out she was . Patient is G3, P2 and currently 7 weeks . She denies abdominal pain or vaginal bleeding. She denies recent travel or surgery. No history of PE or DVT. [facility] Medical History (Updated 04/14/21 @ 13:[address] Yomaira Cordero, ) Bilateral headaches Hyperthyroidism Melanoma Vitamin D deficiency Home Medications prenat.vits,sushil,[id number]-mpac-msyjp 1 tab PO DAILY 04/06/21 [History Last Taken Unknown] hydroxyzine pamoate 50 mg capsule 50 mg PO TID PRN #60 cap 04/12/21 [Rx Last Taken Unknown] citalopram [Celexa] 20 mg PO DAILY #30 tab 04/14/21 [Rx Last Taken Unknown] enoxaparin [Lovenox] 120 mg SUBCUT Q12H #60 ml 04/14/21 [Rx Last Taken Unknown] Allergy/AdvReac Type Severity Reaction Status Date / Time clavulanic acid AdvReac Mild Diarrhea Verified 04/14/21 10:10 [From Augmentin] amoxicillin [From Augmentin] AdvReac Diarrhea Verified 04/14/21 10:10 Surgical History History of tonsillectomy Status post removal of thyroid nodule Social History (Updated 04/06/21 @ 12:39 by Martha Henriquez NP, [employer]) adopted: No household members: spouse and children number of children: 2 pets and animals: Yes pets and animals: cat(s) and dog(s) Smoking Status: Never smoker alcohol intake: current alcohol intake frequency: holidays/special occasions only substance use type: does not use what type of physical activity do you participate in: none ROS ROS ED Review of Systems ROS Unobtainable: other Constitutional Constitutional ED: Reports lethargy; Denies chills, fever(s), sweats or weight loss Eyes Eyes: Denies blurry vision, change in vision or diplopia ENT ENT ED: Denies rhinorrhea or sore throat Cardiovascular Cardiovascular: Reports chest pain and racing heartbeat; Denies orthopnea Respiratory/Chest Respiratory/Chest: Reports dyspnea and dyspnea on exertion; Denies cough, orthopnea or sputum Gastrointestinal Gastrointestinal: Denies abdominal pain, diarrhea, nausea or vomiting Genitourinary Genitourinary ED: Denies dysuria, hematuria or urinary frequency Musculoskeletal Musculoskeletal: Denies arthralgias, back pain, myalgias or neck pain Integumentary Denies abscess, Abrasions or rash Neurologic Neurologic: Denies headache(s) or weakness Psychiatric Psychiatric: Denies anxiety, depression or suicidal thoughts Endocrine Endocrinology: Denies polydipsia, polyphagia or polyuria Hematologic/Lymphatic Hematologic/Lymphatic: Denies easy bleeding, easy bruising or lymphadenopathy Allergic/Immunologic Allergic/Immunologic ED: Denies mouth swelling, tongue swelling or urticaria EXAM Physical Exam Const Vital Signs: 04/14/21 10:03 04/14/21 10:07 04/14/21 11:23 Temperature 98.1 F Temperature Source Temporal Pulse Rate 95 96 Respiratory Rate 16 18 Respiratory Effort Normal Non-Labored Blood Pressure 141/72 H 111/64 Blood Pressure Mean 95 79 Pulse Ox 100 98 Oxygen Delivery Method Room Air Room Air 04/14/21 13:11 Temperature Temperature Source Pulse Rate 93 Respiratory Rate 12 Respiratory Effort Blood Pressure 121/99 H Blood Pressure Mean 106 Pulse Ox 100 Oxygen Delivery Method Room Air Positive well nourished and well developed General Appearance ED: well developed and NAD HEENT Reports TM's clear and moist mucous membranes normocephalic and atraumatic; Negative for trauma or tenderness Tympanic Membrane ED: Yes TM's clear Eyes PERRL and EOMs intact bilaterally General Eye ED: Negative for pale conjunctiva or scleral icterus Neck no lymphadenopathy, supple and no JVD General: Negative for tenderness Chest Wall inspection of chest normal and palpation of chest normal Chest: Negative for tenderness Resp normal respiratory effort and clear to auscultation bilaterally Effort and Inspection: Negative for respiratory distress or pain with movement Auscultation: Negative for rhonchi, wheezes or diminished lung sounds Cardio regular rate, regular rhythm, S1 normal heart sound, S2 normal heart sound and no murmurs Peripheral Pulses: pulses 2+ throughout GI normal to inspection, nondistended, normoactive bowel sounds, soft to palpation, non-tender, non-distended and no masses Back/Spine no CVA tenderness and no thoracic nor lumbar tenderness Extremity normal to inspection General Extremety ED: Negative for edema General Extremity: Negative for edema Neuro oriented x3, CN's II-XII intact bilaterally, no sensory deficits noted and gait normal Sensorium / Orientation: awake, alert, oriented to person, oriented to place and oriented to time Motor Exam: strength 5/5 throughout and strength abnormal Psych mental status grossly normal Skin no rashes or lesions noted and no wounds MDM MDM MDM Narrative Medical decision making narrative: Patient noted to have multiple bilateral pulmonary emboli. Patient was started on Lovenox. I discussed case with Dr. Jefe Blandon her ACTIVITIES SPECIALIST. Patient will be started on Lovenox. Lab Data Attestation: I reviewed the patient's lab results. Labs: Laboratory Results - last 24 hr 04/14/21 04/14/21 04/14/21 10:05 10:05 10:40 WBC 9.2 RBC 5.30 Hgb 13.6 Hct 42.3 MCV 79.8 L MCH 25.7 L MCHC 32.2 RDW Std Deviation 42.3 RDW Coeff of Philip 14.6 Plt Count 297 MPV 10.4 Immature Gran % (Auto) 0.300 Neut % (Auto) 64.2 Lymph % (Auto) 28.0 [place] % (Auto) 6.2 Eos % (Auto) 1.0 Baso % (Auto) 0.3 Absolute Neuts (auto) 5.9 Absolute Lymphs (auto) 2.57 Nucleated RBC % 0 D-Dimer Quant (PE/DVT) 0.87 H* Sodium 139 Potassium 3.4 L Chloride 107 Carbon Dioxide 27.0 Anion Gap 5 BUN 7 Creatinine 0.83 Estim Creat Clear Calc 96.38 Est GFR (MDRD) Af Amer 103 Est GFR (MDRD) Non-Af 85 BUN/Creatinine Ratio 8.4 L Glucose 112 H Calcium 9.4 Troponin I < 0.015 Radiography Diagnostic Testing: Radiology Impression Chest X-Ray 04/14/21 11:04 IMPRESSION: Mild increased markings in the medial aspect of the right lung base. This may represent an early infiltrate. Electronically Signed: Byron Simental MD at 11:29 EDT , Service support , Chest CTA 04/14/21 11:09 IMPRESSION: Multiple intraluminal filling defects in branches of the right and left upper lobe pulmonary arteries in keeping with pulmonary emboli. Electronically Signed: Byron Simental MD at 12:13 EDT , Service support , EKG Initial EKG: Attestation: I personally reviewed and interpreted this EKG as follows: Comments: Sinus rhythm with occasional PACs and PVCs. Ventricular rate of 93 bpm with no acute ST segment changes. Discharge Plan Triage Chief Complaint: Chest Pain ED Provider: Yomaira Cordero Dx/Rx/DC Orders Clinical Impression: Pulmonary emboli Instructions: Pulmonary Embolism Prescriptions: New citalopram [Celexa] 20 MG tablet 20 mg PO DAILY Qty: 30 RF: 12 enoxaparin [Lovenox] 120 mg/0.8 mL syringe 120 mg subcut Q12H Qty: 60 RF: 0 No Action prenat.vits,sushil,kmh-lhcf-sxyor Tablet 1 tab PO DAILY RF: 0 hydroxyzine pamoate [Vistaril] 50 mg capsule 50 mg PO TID PRN (Reason: anxiety) Qty: 60 RF: 2 Stand Alone Forms: Work / School Excuse Primary Care Provider: Care Physician,No Primary Referrals: Rosalva Quintero MD [STAFF PHYSICIAN] - 5-7 Days Monica Francisco MD [STAFF PHYSICIAN] - 5-7 Days Care Physician,No Primary [Primary Care Provider] - Disposition Disposition: Home, self care
[2021-04-14 10:36] LABS: Absolute Lymphocyte Count 2.57 X10^3/uL (0.83-4.51); Absolute Neutrophil Count 5.9 X10^3/uL (2.0-7.7); Basophil# 0.03 X10^3/uL; Basophil% 0.3 % (0-1); Eosinophil# 0.09 X10^3/uL; Hematocrit 42.3 % (37-47); Hemoglobin 13.6 g/dL (12.0-15.0); Lymphocyte # 2.57 X10^3/ul (0.83-4.51); Mean Corp Hgb Conc 32.2 g/dL (32-36); Mean Corpuscular Hgb 25.7 pg (27.0-32.0); Mean Corpuscular Volume 79.8 fL (81-99); Mean Platelet Vol. 10.4 fl (6.2-12.0); Monocyte# 0.57 X10^3/uL; Monocyte% 6.2 % (0-10); NRBC Flagged by Analyzer 0 % (0-5); Neutrophil # 5.89 X10^3/uL (2.7-7.7); Neutrophil % 64.2 % (47-70); Platelet Count 297 K/mm3 (150-450); RBC Distribution Width CV 14.6 % (11.6-14.6); RBC Distribution Width SD 42.3 fl (35.1-43.9); White Blood Count 9.2 K/mm3 (4.4-11.0)
[2021-04-14] MEDS: 0.9% Normal Saline 1,000 ML 150 ML IV (10:45)
[2021-04-14] MEDS: hydrOXYzine PAM 25 MG Capsule PO (10:45)
[2021-04-14 10:49] LABS: Anion Gap 5 (5-15); BUN 7 mg/dL (7-18); BUN/Creat Ratio 8.4 RATIO (10-20); Calcium,Total 9.4 mg/dL (8.5-10.1); Chloride 107 mmol/L (98-107); Creatinine, Serum 0.83 mg/dL (0.55-1.02); EST Glomerular Filtration Rate 85 mL/min (>60); Est Glom Filt Rate - Afr Amer 103 mL/min (>60); Estimated Creatinine Clearance 96.38 ml/min; Glucose 112 mg/dL (74-106); Potassium 3.4 mmol/L (3.5-5.1); Sodium Level 139 mmol/L (136-145)
--- NOTE | 2021-04-14 11:04 | RAD_ITS ---
STUDY: X-RAY CHEST REASON FOR EXAM: Female, 30 years old. Chest pain . The patient is 7 weeks .. The abdomen was shielded appropriately. TECHNIQUE: Single AP portable view of the chest. COMPARISON: Comparison is made with prior examination dated 10/13/2019. FINDINGS: EKG electrodes are seen. Minimal increased markings are seen at the right lung base medially. This may represent an early infiltrate. There is no demonstrated pleural abnormality. Normal size heart. Normal mediastinum and vignesh. Normal visualized pulmonary arteries. Normal visualized aortic arch and descending thoracic aorta. Normal visualized thoracic spine. Normal visualized ribs, clavicles, and shoulders. There is no demonstrated abnormality of the visualized soft tissue structures of the upper abdomen. RAD/Chest 1 View (Portable) IMPRESSION: Mild increased markings in the medial aspect of the right lung base. This may represent an early infiltrate. Electronically Signed: Byron Simental MD at 11:29 EDT , Service support ,
[2021-04-14 11:07] LABS: D-Dimer Quantitative (DVT/PE) 0.87 FEU/ug/m (0.27-0.49)
--- NOTE | 2021-04-14 11:09 | CT_ITS ---
STUDY: CTA CHEST REASON FOR EXAM: Female, 30 years old. Chest pain. Elevated d-dimer. RADIATION DOSAGE (If Supplied By Facility): CTDIvol = ( 13.81 ) mGy, DLP = ( 506.27 ) mGycm TECHNIQUE: The examination was performed with the intravenous administration of IV 100mL Isovue-370. Post-processing of the angiographic images was performed, with multiplanar reformation and 3D reconstruction. Individualized dose optimization techniques were used for this CT. COMPARISON: Comparison is made with prior chest radiograph done earlier today. FINDINGS: The multiple small nonocclusive intraluminal filling defects in the branches of the right and left upper lobe pulmonary artery. Normal thoracic aorta and visualized great vessels. There is no demonstrated aortic dissection. Normal heart and pericardium. Normal mediastinum. Normal hilar regions. Normal visualized trachea and bronchi. The lungs are well expanded. Normal pulmonary parenchyma. Normal pleura. Normal chest wall structures. Normal osseous structures. Small island hernia. CT/CTA Chest W/WO Contrast IMPRESSION: Multiple intraluminal filling defects in branches of the right and left upper lobe pulmonary arteries in keeping with pulmonary emboli. Electronically Signed: Byron Simental MD at 12:13 EDT , Service support ,
[2021-04-14 11:23] VITALS: BP 111/64; PULSE 96; RESP 18; O2SAT 98
[2021-04-14] MEDS: Enoxaparin 120 MG/0.8 ML Syringe SC (12:47)
[2021-04-14 13:11] VITALS: BP 121/99; PULSE 93; RESP 12; O2SAT 100
--- NOTE | 2021-04-14 13:54 | CM.ED ---
SOCIAL WORK Referral Source: Dr. Cordero Reason for Consult: Rx Resources Informed by Dr. Cordero, patient requires Rx for Lovenox and requests this worker check cost for patient. Met with patient in room. Patient reports utilizes [facility]. Call to [facility], Dr. Cordero gave prescription. Pharmacist reports no cost for patient. Patient discharged at this time and will warp picker prescription from [facility]. Plan: Home Alex Guerra, LICENSED MIDWIFE, COLLEGE DIRECTOR
== END 2021-04-14 14:10 | disposition home or self-care (01) ==
PROVIDERS: Emergency Provider Emergency Medicine
DX: O88.211 Thromboembolism in pregnancy, first trimester (principal); O99.341 Other mental disorders complicating pregnancy, first trimester; F41.9 Anxiety disorder, unspecified; O99.281 Endocrine, nutritional and metabolic diseases complicating pregnancy, first trimester; E05.90 Thyrotoxicosis, unspecified without thyrotoxic crisis or storm; Z79.899 Other long term (current) drug therapy; Z3A.01 Less than 8 weeks gestation of pregnancy
CPT/HCPCS: 71045; 71275; 80048; 84484; 85025; 85379; 93005; 96360; 96361; 96372; 99283; J7030; Q9967; A4216

== ENCOUNTER → 2021-04-17 13:22 | Outpatient (CLI) | payer MEDICAID, SELFPAY ==
[2021-04-14 10:03] VITALS: BMI 39.4
--- NOTE | 2021-04-17 13:24 | VDLE_ITS ---
Reason For Study: RLE pain RIGHT LEFT GSV is normal. CFV is compressible, spontaneous, phasic, CFV is compressible, spontaneous, phasic, competent, and demonstrates normal competent and demonstrates normal augmentation. augmentation. FV is compressible, spontaneous, phasic, competent and demonstrates normal augmentation. POP V is compressible, spontaneous, phasic, competent and demonstrates normal augmentation. T/P Trunk is compressible. PTV is compressible. RT PerV is compressible. Procedure This is a venous duplex using B-mode, color flow and spectral Doppler. Exam performed in department. The exam was diagnostic. A preliminary report was called and/or faxed to Dr. Estrada @ [phone] @ 2:00pm. VL/Venous Duplex US, Unilateral Interpretation Summary There is no evidence of right lower extremity deep vein thrombosis. Right great saphenous vein appears patent and compressible segmentally. Normal flow patterns left common f emoral vein Ordering Physician: Carlos Manuel Sharma Referring Physician: Jorge Luis Martines Performed By: Veronica Saldana, RDCS, RVT
== END ==
PROVIDERS: PCP Nurse Practitioner Family; Referring Provider Nurse Practitioner Family; Visit Provider Nurse Practitioner Family
DX: M79.661 Pain in right lower leg (principal)
CPT/HCPCS: 93971

== ENCOUNTER 2021-04-17 14:00 | Emergency (ER) | payer MEDICAID, SELFPAY ==
[2021-04-17 14:00] VITALS: PULSE 112; RESP 21; O2SAT 98
[2021-04-17 14:01] VITALS: BP 152/79; PULSE 115; RESP 23; TEMP 37.6; O2SAT 97; BMI 39.6
[2021-04-17 14:17] VITALS: O2SAT 98
--- NOTE | 2021-04-17 14:17 | RAD_ITS ---
STUDY: X-RAY CHEST REASON FOR EXAM: Female, 30 years old. Chest pain . The patient is . Shielding was performed. TECHNIQUE: Single AP portable view of the chest. COMPARISON: Comparison is made with prior study dated 04/14/2021. FINDINGS: EKG electrodes are seen. The lungs are clear and expanded. There is no demonstrated pleural abnormality. Normal size heart. Normal mediastinum and vignesh. Normal visualized pulmonary arteries. Normal visualized aortic arch and descending thoracic aorta. Normal visualized thoracic spine. Normal visualized ribs, clavicles, and shoulders. There is no demonstrated abnormality of the visualized soft tissue structures of the upper abdomen. RAD/Chest 1 View (Portable) IMPRESSION: Normal x-ray examination of the chest. Electronically Signed: Byron Simental MD at 14:40 EDT , Service support ,
--- NOTE | 2021-04-17 14:17 | EKG12_ITS ---
Test Reason : CP Blood Pressure : / mmHG Vent. Rate : 115 BPM Atrial Rate : 115 BPM P-R Int : 132 ms QRS Dur : 086 ms QT Int : 336 ms P-R-T Axes : 071 043 010 degrees QTc Int : 464 ms Sinus tachycardia with frequent Premature ventricular complexes Otherwise normal ECG Confirmed by LEILANI BRASWELL, LILIANA ([id number]), news editor AUDREY FISCHER ([id number]) on 04/20/2021 9:53:23 AM Referred By: ARIANNA Confirmed By:LILIANA DUKE MD
--- NOTE | 2021-04-17 14:19 | ED.VIS.CHEST ---
HPI History of Present Illness Chief Complaint: Chest Pain Narrative Narrative: 30-year-old female presenting with sharp chest pain in the center of her chest. She states she was diagnosed with bilateral pulmonary emboli earlier this week. The pain feels similar. She has some mild shortness of breath with exertion. She also has anxiety and is concerned that her anxiety is playing off of this as well. She has not had a fever or chills. She denies body aches or loss of taste and smell. Patient denies any cardiac history. She is currently 8 weeks . She states she takes 120 mg of Lovenox twice daily. She states she had outpatient lower extremity ultrasounds which were negative for DVT. [facility] Medical History Bilateral headaches Hyperthyroidism Melanoma Vitamin D deficiency Home Medications prenat.vits,sushil,[id number]-[id number]-[id number] 1 tab PO DAILY 04/06/21 [History Last Taken Unknown] hydroxyzine pamoate 50 mg capsule 50 mg PO TID PRN #60 cap 04/12/21 [Rx Last Taken Unknown] citalopram [Celexa] 20 mg PO DAILY #30 tab 04/14/21 [Rx Last Taken Unknown] enoxaparin [Lovenox] 120 mg SUBCUT Q12H #60 ml 04/14/21 [Rx Last Taken Unknown] Allergy/AdvReac Type Severity Reaction Status Date / Time clavulanic acid AdvReac Mild Diarrhea Verified 04/17/21 14:00 [From Augmentin] amoxicillin [From Augmentin] AdvReac Diarrhea Verified 04/17/21 14:00 Surgical History History of tonsillectomy Status post removal of thyroid nodule Social History adopted: No household members: spouse and children number of children: 2 pets and animals: Yes pets and animals: cat(s) and dog(s) Smoking Status: Never smoker alcohol intake: current alcohol intake frequency: holidays/special occasions only substance use type: does not use what type of physical activity do you participate in: none ROS ROS ED Constitutional Constitutional ED: Denies chills, fever(s) or sweats Eyes Eyes: Denies blurry vision or change in vision ENT ENT ED: Denies ear pain, rhinorrhea or sore throat Cardiovascular Cardiovascular: Reports chest pain and racing heartbeat; Denies palpitations Respiratory/Chest Respiratory/Chest: Reports cough; Denies dyspnea or sputum Gastrointestinal Gastrointestinal: Denies abdominal pain, constipation, diarrhea or vomiting Genitourinary Genitourinary ED: Denies dysuria, hematuria or urinary frequency Musculoskeletal Musculoskeletal: Denies arthralgias, myalgias or neck pain Integumentary Denies abscess, Abrasions or rash Neurologic Neurologic: Denies headache(s), paresthesias or weakness Psychiatric Psychiatric: Denies anxiety, depression, suicidal ideation or suicidal thoughts Endocrine Endocrinology: Denies polydipsia or polyuria EXAM Physical Exam Const Vital Signs: 04/17/21 14:00 04/17/21 14:01 04/17/21 14:17 Temperature 99.6 F H Temperature Source Temporal Pulse Rate 112 H 115 H Respiratory Rate 21 H 23 H Blood Pressure 152/79 H Blood Pressure Mean 103 Pulse Ox 98 97 98 Oxygen Delivery Method Room Air Room Air Room Air Positive well nourished General Appearance ED: NAD; Negative for pallor HEENT Reports normocephalic, head/scalp atraumatic and moist mucous membranes normocephalic and atraumatic Eyes PERRL and EOMs intact bilaterally Neck no lymphadenopathy and supple Chest Wall inspection of chest normal and palpation of chest normal Resp normal respiratory effort and clear to auscultation bilaterally Auscultation: Negative for rales, rhonchi or wheezes Cardio regular rhythm and no murmurs Rate: tachycardic GI normal to inspection, nondistended, normoactive bowel sounds and non-distended Auscultation: normoactive bowel sounds Palpation: soft Narrative: Deferred Extremity normal to inspection General Extremety ED: Yes edema and tenderness General Extremity: edema Neuro oriented x3 and CN's II-XII intact bilaterally Sensorium / Orientation: alert Motor Exam: strength 5/5 throughout Psych mental status grossly normal Attitude: No agitated Skin no rashes or lesions noted and no wounds General Skin Exam: Negative for jaundice or pallor Heart Score History: Slightly/Non-Suspicious ECG: Nonspecific Repolarization Age: </= 45 years Risk Factors: No Risk Factors Score: 1 MDM MDM MDM Narrative Medical decision making narrative: 30-year-old female presenting with sharp chest pain which is similar to her previous chest pain that she had the other day and was diagnosed with multiple bilateral PEs. Patient denies any symptoms of a viral syndrome. She was concerned that her blood clot could break off and go to her heart. I did spend time counseling her that although she has multiple bilateral PEs her pain and shortness of breath would not go away immediately and will take some time. She did ask how much she should exert herself and I counseled her that she should go by her symptoms and if she feels short of breath she should slow down. She does state that her is willing to help her and does not want her to do much work. Her lab work other than a slight leukocytosis of 11.2 is normal. Renal function electrolytes are normal. Troponin is negative. Chest x-ray one-view portable as interpreted by myself shows no acute cardiopulmonary process. I do not believe the patient needs a repeat CTA at this time. Given that her heart enzymes are normal and she has had this pain for days I do not believe this is cardiac in etiology and I do not believe any heart strain from the PEs. She was amenable to this plan. Patient given return precautions. Impression: 1. History of multiple bilateral pulmonary emboli 2. Chest pain Lab Data Labs: Laboratory Results - last 24 hr 04/17/21 04/17/21 14:10 14:10 WBC 11.2 H RBC 5.20 Hgb 13.1 Hct 41.0 MCV 78.8 L MCH 25.2 L MCHC 32.0 RDW Std Deviation 40.6 RDW Coeff of Philip 14.2 Plt Count 294 MPV 10.7 Immature Gran % (Auto) 0.300 Neut % (Auto) 73.1 H Lymph % (Auto) 21.3 Breathitt % (Auto) 4.9 Eos % (Auto) 0.1 Baso % (Auto) 0.3 Absolute Neuts (auto) 8.2 H Absolute Lymphs (auto) 2.38 Nucleated RBC % 0 Sodium 138 Potassium 3.5 Chloride 106 Carbon Dioxide 23.0 Anion Gap 9 BUN 8 Creatinine 0.79 Estim Creat Clear Calc 97.48 Est GFR (MDRD) Af Amer 109 Est GFR (MDRD) Non-Af 90 BUN/Creatinine Ratio 10.1 Glucose 124 H Calcium 9.2 Troponin I < 0.015 Radiography Diagnostic Testing: Radiology Impression Chest X-Ray 04/17/21 14:17 IMPRESSION: Normal x-ray examination of the chest. Electronically Signed: Byron Simental MD at 14:40 EDT , Service support , Discharge Plan Triage Chief Complaint: Chest Pain ED Provider: Fidel White Dx/Rx/DC Orders Instructions: Pulmonary Embolism Prescriptions: No Action prenat.vits,sushil,[id number]-jhzx-gvmmu Tablet 1 tab PO DAILY RF: 0 citalopram [Celexa] 20 MG tablet 20 mg PO DAILY Qty: 30 RF: 12 enoxaparin [Lovenox] 120 mg/0.8 mL syringe 120 mg subcut Q12H Qty: 60 RF: 0 hydroxyzine pamoate [Vistaril] 50 mg capsule 50 mg PO TID PRN (Reason: anxiety) Qty: 60 RF: 2 Primary Care Provider: Jorge Luis Martines NP Referrals: Jorge Luis Martines NP, TWISTER DOFFER-C [Primary Care Provider] - Disposition Disposition: Home, self care
[2021-04-17 14:25] LABS: Absolute Lymphocyte Count 2.38 X10^3/uL (0.83-4.51); Absolute Neutrophil Count 8.2 X10^3/uL (2.0-7.7); Basophil# 0.03 X10^3/uL; Basophil% 0.3 % (0-1); Eosinophil# 0.01 X10^3/uL; Eosinophils% 0.1 % (0-5); Hemoglobin 13.1 g/dL (12.0-15.0); Lymphocyte # 2.38 X10^3/ul (0.83-4.51); Lymphocyte % 21.3 % (19-41); Mean Corpuscular Hgb 25.2 pg (27.0-32.0); Mean Corpuscular Volume 78.8 fL (81-99); Mean Platelet Vol. 10.7 fl (6.2-12.0); Monocyte# 0.55 X10^3/uL; Monocyte% 4.9 % (0-10); NRBC Flagged by Analyzer 0 % (0-5); Neutrophil % 73.1 % (47-70); Platelet Count 294 K/mm3 (150-450); RBC Distribution Width CV 14.2 % (11.6-14.6); RBC Distribution Width SD 40.6 fl (35.1-43.9); White Blood Count 11.2 K/mm3 (4.4-11.0)
[2021-04-17 14:45] LABS: Anion Gap 9 (5-15); BUN 8 mg/dL (7-18); BUN/Creat Ratio 10.1 RATIO (10-20); Calcium,Total 9.2 mg/dL (8.5-10.1); Chloride 106 mmol/L (98-107); Creatinine, Serum 0.79 mg/dL (0.55-1.02); EST Glomerular Filtration Rate 90 mL/min (>60); Est Glom Filt Rate - Afr Amer 109 mL/min (>60); Estimated Creatinine Clearance 97.48 ml/min; Glucose 124 mg/dL (74-106); Potassium 3.5 mmol/L (3.5-5.1); Sodium Level 138 mmol/L (136-145)
[2021-04-17 15:03] VITALS: BP 133/60; PULSE 99; RESP 19; O2SAT 95
== END 2021-04-17 15:04 | disposition home or self-care (01) ==
PROVIDERS: Emergency Provider Student in an Organized Health Care Education/Training Program; PCP Nurse Practitioner Family
DX: O99.891 Other specified diseases and conditions complicating pregnancy (principal); R07.9 Chest pain, unspecified; M79.661 Pain in right lower leg; O99.281 Endocrine, nutritional and metabolic diseases complicating pregnancy, first trimester; E05.90 Thyrotoxicosis, unspecified without thyrotoxic crisis or storm; O99.341 Other mental disorders complicating pregnancy, first trimester; F41.9 Anxiety disorder, unspecified; Z79.01 Long term (current) use of anticoagulants; Z79.899 Other long term (current) drug therapy; Z86.711 Personal history of pulmonary embolism; Z3A.08 8 weeks gestation of pregnancy
CPT/HCPCS: 71045; 80048; 84484; 85025; 93005; 93971; 99283; A4216

== ENCOUNTER → 2021-04-24 | Outpatient (CLI) | payer MEDICAID, SELFPAY ==
[2021-04-24 15:35] VITALS: BMI 39.6
[2021-04-24 19:19] LABS: Amphetamine Urine VISTA NEGATIVE (<1000 ng/mL); Barbiturate Urine VISTA NEGATIVE (< 200 ng/mL); Benzodiazepine Urine VISTA NEGATIVE (< 200 ng/mL); Cocaine Urine VISTA NEGATIVE (< 300 ng/mL); Ecstacy Urine VISTA NEGATIVE (< 500 ng/mL); Methadone Urine VISTA NEGATIVE (< 300 ng/mL); PCP Urine VISTA NEGATIVE (< 25 ng/mL); THC Urine VISTA NEGATIVE (< 50 ng/mL); Vista UDS pH Range 6
[2021-04-26 20:08] LABS: Chlamydia By Nucleic Acid AMP Negative (Negative)
[2021-04-26 22:23] LABS: Gonococcus By Nucleic Acid AMP Negative (Negative)
[2021-04-30 10:41] LABS: HPV APTIMA, High Risk Negative (Negative)
== END | disposition home or self-care (01) ==
PROVIDERS: PCP Nurse Practitioner Family; Visit Provider Obstetrics & Gynecology
DX: Z34.90 Encounter for supervision of normal pregnancy, unspecified, unspecified trimester (principal)
CPT/HCPCS: 80307; 87086; 87088; 87491; 87591; 87624; 88175; G0145

== ENCOUNTER → 2021-05-08 11:32 | Outpatient (CLI) | payer MEDICAID, SELFPAY ==
[2021-04-24 15:35] VITALS: BMI 39.6
[2021-05-08 12:10] LABS: Absolute Lymphocyte Count 3.16 X10^3/uL (0.83-4.51); Absolute Neutrophil Count 5.2 X10^3/uL (2.0-7.7); Basophil# 0.04 X10^3/uL; Basophil% 0.4 % (0-1); Eosinophil# 0.11 X10^3/uL; Eosinophils% 1.2 % (0-5); Hematocrit 40.3 % (37-47); Hemoglobin 12.9 g/dL (12.0-15.0); Lymphocyte # 3.16 X10^3/ul (0.83-4.51); Lymphocyte % 34.7 % (19-41); Mean Corpuscular Hgb 25.6 pg (27.0-32.0); Mean Corpuscular Volume 80.1 fL (81-99); Mean Platelet Vol. 10.4 fl (6.2-12.0); Monocyte# 0.59 X10^3/uL; Monocyte% 6.5 % (0-10); NRBC Flagged by Analyzer 0 % (0-5); Neutrophil # 5.17 X10^3/uL (2.7-7.7); Neutrophil % 56.8 % (47-70); Platelet Count 279 K/mm3 (150-450); RBC Distribution Width SD 40.8 fl (35.1-43.9); Red Blood Count 5.03 M/mm3 (4.2-5.4); White Blood Count 9.1 K/mm3 (4.4-11.0)
[2021-05-08 12:41] LABS: NATERA MAILED SPECIMEN
[2021-05-09 09:17] LABS: HIV - WCH Non-Reactive (Nonreactive); Hepatitis B Surface Antigen Non-Reactive (Nonreactive); Hepatitis C Antibody Non-Reactive (Nonreactive); Rubella IgG Reactive (Nonreactive); Syphilis Antibodies Non-reactive
== END ==
PROVIDERS: PCP Nurse Practitioner Family; Referring Provider Obstetrics & Gynecology; Visit Provider Obstetrics & Gynecology
DX: Z34.81 Encounter for supervision of other normal pregnancy, first trimester (principal); Z31.430 Encounter of female for testing for genetic disease carrier status for procreative management
CPT/HCPCS: 36415; 85025; 86703; 86762; 86780; 86803; 86850; 86900; 86901; 87340

== ENCOUNTER 2021-05-20 08:49 | Day surgery (SDC) | payer MEDICAID, SELFPAY ==
[2021-05-19 14:49] VITALS: BMI 39.6
[2021-05-20] VITALS (10 sets, daily range): BP systolic 136–152; BP diastolic 85–92; PULSE 86–97; RESP 16; TEMP 36.3–36.7; O2SAT 99–100; BMI 37.5
--- NOTE | 2021-05-20 09:12 | HP.PCM_ITS ---
History and Physical Date of Admission: 05/20/21 Intake Vital Signs 05/19/21 14:48 05/19/21 14:49 Height 5 ft 7 in Weight: 240 lb BMI 37.5 39.6 BP 160/92 H Intake Visit Reasons: spotting Chief Complaint: est ob, vb [employer] Work[employer] Required: No Is patient in pain?: No Allergies clavulanic acid [From Augmentin] Adverse Reaction (Mild, Verified 05/19/21 14:48) Diarrhea amoxicillin [From Augmentin] Adverse Reaction (Verified 05/19/21 14:48) Diarrhea Medications prenat.vits,sushil,voy-dcuz-gqayg 1 tab PO DAILY 04/06/21 [History Confirmed 05/19/21] hydroxyzine pamoate 50 mg capsule 50 mg PO TID PRN #60 cap 04/12/21 [Rx Confirmed 05/19/21] citalopram [Celexa] 20 mg PO DAILY #30 tab 04/14/21 [Rx Confirmed 05/19/21] enoxaparin [Lovenox] 120 mg SUBCUT Q12H #60 ml 04/14/21 [Rx Confirmed 05/19/21] Last Menstral Period: 02/19/21 Zika: Zika virus screening: Positive : No PFSH PFSH Medical History (Updated 05/20/21 @ 06:[address] Monica Francisco MD) Bilateral headaches Hyperthyroidism Melanoma Vitamin D deficiency Surgical History History of tonsillectomy Status post removal of thyroid nodule Social History adopted: No household members: spouse and children number of children: 2 pets and animals: Yes pets and animals: cat(s) and dog(s) Smoking Status: Never smoker alcohol intake: current alcohol intake frequency: holidays/special occasions only substance use type: does not use what type of physical activity do you participate in: none Pregancy History 3 Elective abortions Hx Para 2 Spontaneous abortions Hx # Term Pregnancies Ectopic pregnancies Hx # Pregnancies Multiple births # of living children 2 Past Pregnancies Del. Date Name GA/Weeks Outcome Route Bth Weight Infant Gen Labor Lgth Anesthesia Del Locatn Provider FOB 02/22/17 Abimael live - full term 8# 2oz Male 20 hr epidural Gurpreetdorian Berger 07/31/18 Altagracia live - full term 9# 1oz Female 7 hr epidural Gurpreetdorian Berger Delivery Date: 02/22/17 2 degree tear/VAVB. Gest hypertension. Martha Henriquez Delivery Date: 07/31/18 Gest hypertension/induced Martha Henriquez HPI spotting Details: MINDY WEBBER is a 30 year old who presents for vaginal bleeding. She had her first visit 4 weeks ago and was measuring appropriate for gestational age. Beginning of her was complicated with a pulmonary embolus and she has been on therapeutic Lovenox twice daily since for the last 5 weeks. Patient denies any fevers or recent infections. She has had mild cramping but nothing severe. She denies any CP or SOB and has been taking her lovenox regularly. OB Visit SILVIA Calculator Estimated Delivery Date Method Current WG Current Estimate 11/26/21 LMP (Certain) 12w 6d Other Estimates 11/27/21 Ultrasound #1 12w 5d Expected Delivery Route/Plan Labor Preferences- CB/BF classes: [] labor support person: [] labor intervention preferences: [] pain management options preferred: [] cut cord/dad catch: [] : [] PP control planned: [] discussed possible routes of delivery and associated risks: [] special requests: [] Specific Issue/Plans covid status: non immune flu vaccine: [] tdap vaccine: [] rhogam: [] LARC form signed: [] Problem list reviewed and updated with the most current plan of care details and appropriate orders placed. Relevant counseling for the gestational age provided. Continue routine care and follow up unless otherwise noted in visit notes/problem list details Initial Weight: 240 lb Date EGA Weight BP Urine Prot Glucose FHR FuHt Pres Dilation Effaced St Visit Note 04/24/21 9w 1d 243 lb (+3 lb) 138/86 180 SM- CRL cons with LMP 2.1 cm 05/19/21 12w 5d 240 lb (+0 oz) 160/92 Sm- ACOG First Trimester First Trimester: Discussed Diagnostics Diagnostics Diagnostics: Blood Type A POSITIVE Antibody Screen NEGATIVE HIV 1&2 Antibody Non-Reactive (Nonreactive) Rubella IgG Antibody Reactive (Nonreactive) Hgb 12.9 g/dL (12.0-15.0) Hct 40.3 % (37-47) Chlamydia DNA (GAVIN) Negative (Negative) N.gonorrhoeae DNA (GAVIN) Negative (Negative) Details: HIV: Urine Culture: Sequential Screen: NIPT Screen: ROS Const Reports as per HPI and Denies fever(s) ENT Reports system reviewed and no additional complaints, except as documented Card Reports system reviewed and no additional complaints, except as documented Resp Reports system reviewed and no additional complaints, except as documented GI Reports as per HPI Reports as per HPI and Reports abnormal vaginal bleeding Musc Reports system reviewed and no additional complaints, except as documented Skin/Breast Reports system reviewed and no additional complaints, except as documented Neuro Yes system reviewed and no additional complaints, except as documented Psych Reports system reviewed and no additional complaints, except as documented Endo Reports system reviewed and no additional complaints, except as documented Christian/Lymph Denies easy bleeding, Denies easy bruising and Denies lymphadenopathy Exam Const General: healthy appearing, comfortable and no acute distress Orientation: alert HENMT Head: normal to inspection and normocephalic Ears: hearing grossly normal bilaterally and external ears normal Nose: external nose normal and nares normal Face and sinus: normal facial exam Neck Neck: no lymphadenopathy noted Thyroid: thyroid normal Chest Chest palpation & inspection: normal inspection of the chest Resp Effort & Inspection: normal respiratory effort Auscultation: clear to auscultation bilaterally Cardio Rate: regular rate Rhythm: regular rhythm Heart Sounds: S1 normal and S2 normal GI Inspection: normal to inspection Palpation: soft and nontender General: bladder normal to palpation External Female Exam: normal external appearance and normal appearance of the urethra Urethra: normal appearance of the urethra, normal palpation and no discharge Speculum Exam - Vagina: normal appearance of the vagina and vaginal bleeding Speculum Exam - Cervix: normal appearance of the cervix and nontender Bimanual Exam- Vagina & Uterus: bladder normal to palpation, uterine shape normal, No tender and non-tender Bimanual Exam- Adnexa, other: normal adnexae, adnexae mobile, no masses and normal Pelvic Support: normal OB/External & Speculum: vaginal bleeding Speculum Exam: vaginal bleeding Musc Other: gross motor intact no deficits, full bilateral strength Skin General: no rashes or lesions noted Neuro General: no focal motor deficits Motor: muscle tone normal throughout Extrem General: normal to inspection and no pedal edema Psych Appearance: grossly normal Mental Status: mental status grossly normal Affect: normal affect Speech and Movement: speech and movement normal Coding Level of Care Code Off vis,est,level 5 Diagnoses Obesity affecting in first trimester O99.211 Pulmonary emboli I26.99 Depression F32.9 Hyperthyroidism E05.90 History of gestational hypertension Z87.59 Z3A.20 Weeks of gestation: 20 weeks Supervision of high risk , antepartum O09.90 Missed O02.1 Assessment and Plan Assessment and Plan (1) Obesity affecting in first trimester: Status: Acute (2) Pulmonary emboli: Status: Acute Comment: lovenox 120mg BID. diagnosed first trimester. (3) Depression: Status: Acute Comment: Celexa. encouraged counseling. (4) Hyperthyroidism: Status: Acute Comment: check labs w NOB labs; no meds (5) History of gestational hypertension: Status: Acute Comment: Both pregnancies and induced. Baseline labs at NOB (6) : Status: Acute Qualifiers: Weeks of gestation: 20 weeks Qualified Code(s): Z3A.20 - 20 weeks gestation of Comment: Wants carrier and genetic screen, NIPT insufficient DNA, carrier neg. (7) Supervision of high risk , antepartum: Status: Acute Comment: SILVIA 11/26/21 PC: Altagracia Varghese. Spouse: Ab (8) Missed : Status: Acute Comment: 13 weeks but measuring 9. Plan suction D&C 24 hours after last Lovenox shot and restart Lovenox at discharge. Plan - Dr. Monica Francisco MD: After discussing the patient's diagnosis and treatment plan options, patient wishes to proceed with surgical management. I have discussed with the patient the risks, benefits, and alternatives of the procedure which include but are not limited to risks of anesthesia, bleeding, infection, possible damage to bowel, bladder, or surrounding vasculature which could lead to additional surgery to evaluate any complications. Patient agrees to procedure and wishes to proceed. ACOG/uptodate references given for additional information regarding procedure.
--- NOTE | 2021-05-20 09:13 | PCM.OPRPT ---
Problems Associated Problem List Diagnoses (1) Missed : (2) Pulmonary emboli: Report of Operation Date of Procedure: 05/20/21 Pre-Operative Diagnosis: see problem list Post-Operative Diagnosis: same Surgery/Procedure Performed:: Suction dilation and curettage Description of Surgical Findings:: no FHT present, Nonviable 13 weeks insurance claim approver: None Type of Anesthesia: Local MAC Special Medications: none Specimen's removed: POC Drains: none Estimated Blood Loss (mL): 50 Fluids Replaced: crystalloid Description of Procedure: Patient was taken to the operating room and placed under MAC local anesthesia. She was prepped and draped in the normal sterile fashion the dorsal lithotomy position. Bladder was drained of clear urine and anterior lip of the cervix was grasped and the uterus sounded to 10. Cervix was progressively dilated to allow passage of a 10mm suction curette. Progressive passes were made removing the retained products of conception without complication. Sharp curettage confirmed complete removal of the retained products. All instruments were removed from the vagina and excellent hemostasis was noted and the patient was taken to recovery in stable condition. Grafts/Implants Used: none Complications none Admit VTE Documentation VTE Present on Admission: No VTE Mechan Device Prophylaxis: SCD's Procedures Urinary/Genital [id number]: [id number] Surg Trtmt missed Ab, 1TM
--- NOTE | 2021-05-20 09:14 | EX.PCM.DISCH ---
Discharge Instructions Procedure D&C Diet Discharge Diet: No restrictions Activity Discharge Activity: Return to Normal Activity, May Shower and May Take a Tub Bath (after 1 week) May resume sexual activity in: 1-2 weeks Weight Bearing Status: Weight bearing as tolerated Lifting Restrictions: none Dressing / Incision Call your doctor if you observe: Fever of 101 or Higher, Using more than 1 pad per hour, Shortness of breath and Uncontrolled pain Follow Up Care Please Follow Up With: Monica Francisco MD When: Call [phone] to schedule appointment. Test Results: Test results from this visit will be discussed in further detail at your follow-up appointment, if applicable. Discharge Plan Admission Primary Reason for Your Visit: suction d and c Attending Provider: Monica Francisco Primary Care Provider: Jefe Veliz Instructions Additional Instructions / Restrictions: resume morning lovenox dose when you get home, continue normal regimen to also take evening dose tonight for a total of 2 doses, 12 hours apart today. Discharge Orders/Prescriptions Prescriptions: No Action citalopram [Celexa] 20 MG tablet 20 mg PO DAILY Qty: 30 RF: 12 enoxaparin [Lovenox] 120 mg/0.8 mL syringe 120 mg subcut Q12H Qty: 60 RF: 0 hydroxyzine pamoate [Vistaril] 50 mg capsule 50 mg PO TID PRN (Reason: anxiety) Qty: 60 RF: 2 Referrals / Follow Up: Jefe Veliz MD [Primary Care Provider] - Monica Francisco MD [STAFF PHYSICIAN] - Disposition Disposition (needs filled in before D/C Order can be placed): Home, Self Care
--- NOTE | 2021-05-20 09:21 | ED.VIS.FEGU ---
HPI HPI - Female History of Present Illness Chief Complaint: Vag Bleeding Narrative Narrative: Patient presenting secondary to vaginal bleeding. Patient is G3, P2. Patient currently is experiencing a vaginal bleeding episode associated with a that is measuring smaller than her calculated dates. Patient had seen her [employer], and was recommended to come to the emergency department for likely admission and D&C. Patient states that she is still having bleeding, no significant pain. She denies any chest pain shortness of breath lightheadedness or syncope. PFSH PFSH Medical History (Updated 05/20/21 @ 09:[address] Nadeem Silva MD) Bilateral headaches Hyperthyroidism Melanoma Vitamin D deficiency Home Medications hydroxyzine pamoate 50 mg capsule 50 mg PO TID PRN #60 cap 04/12/21 [Rx Last Taken Unknown] citalopram [Celexa] 20 mg PO DAILY #30 tab 04/14/21 [Rx Last Taken Unknown] enoxaparin [Lovenox] 120 mg SUBCUT Q12H #60 ml 04/14/21 [Rx Last Taken Unknown] Allergy/AdvReac Type Severity Reaction Status Date / Time clavulanic acid AdvReac Mild Diarrhea Verified 05/20/21 08:52 [From Augmentin] amoxicillin [From Augmentin] AdvReac Diarrhea Verified 05/20/21 08:52 Surgical History History of tonsillectomy Status post removal of thyroid nodule Social History adopted: No household members: spouse and children number of children: 2 pets and animals: Yes pets and animals: cat(s) and dog(s) Smoking Status: Never smoker alcohol intake: current alcohol intake frequency: holidays/special occasions only substance use type: does not use what type of physical activity do you participate in: none ROS ROS ED Constitutional Constitutional ED: Denies chills or fever(s) ENT ENT ED: Denies rhinorrhea Cardiovascular Cardiovascular: Denies chest pain Respiratory/Chest Respiratory/Chest: Denies cough or dyspnea Gastrointestinal Gastrointestinal: Denies abdominal pain, diarrhea, nausea or vomiting Genitourinary Genitourinary ED: Reports other Details: Positive for vaginal bleeding ; Denies dysuria or hematuria Musculoskeletal Musculoskeletal: Denies back pain Integumentary Denies rash Neurologic Neurologic: Denies paresthesias or weakness Psychiatric Psychiatric: Denies depression Endocrine Endocrinology: Denies fatigue Allergic/Immunologic Allergic/Immunologic ED: Denies urticaria EXAM Physical Exam Const Vital Signs: 05/20/21 08:50 05/20/21 09:12 05/20/21 09:27 Temperature 98.0 F 98 F 98 F Temperature Source Temporal Oral Oral Pulse Rate 96 96 96 Pulse Strength Respiratory Rate 16 16 16 Respiratory Pattern Blood Pressure 137/86 H 137/86 H 137/86 H Blood Pressure Mean 103 103 103 Blood Pressure Source Monitor Blood Pressure Position Sitting Blood Pressure Location Right Arm Baseline BP Pulse Ox 100 100 100 Oxygen Delivery Method Room Air Room Air Room Air 05/20/21 10:24 05/20/21 10:25 05/20/21 10:30 Temperature 97.5 F L Temperature Source Temporal Pulse Rate 95 92 97 Pulse Strength Normal (2+) Respiratory Rate 16 16 16 Respiratory Pattern Normal Blood Pressure 138/85 H 139/91 H 136/86 H Blood Pressure Mean 102 107 102 Blood Pressure Source Monitor Monitor Monitor Blood Pressure Position Semi-Fowlers Supine Semi-Fowlers Blood Pressure Location Right Arm Right Arm Baseline BP 137/86 137/86 137/86 Pulse Ox 99 99 100 Oxygen Delivery Method Room Air Room Air Room Air 05/20/21 10:36 05/20/21 10:45 05/20/21 10:47 Temperature 97.8 F Temperature Source Temporal Pulse Rate 96 86 90 Pulse Strength Respiratory Rate 16 16 16 Respiratory Pattern Blood Pressure 136/92 H 144/91 H 140/91 H Blood Pressure Mean 106 108 107 Blood Pressure Source Monitor Monitor Blood Pressure Position Semi-Fowlers Semi-Fowlers Blood Pressure Location Right Arm Right Arm Baseline BP 137/86 137/86 137/86 Pulse Ox 100 100 100 Oxygen Delivery Method Room Air Room Air Room Air 05/20/21 10:51 05/20/21 11:22 Temperature 97.3 F L Temperature Source Temporal Pulse Rate 90 Pulse Strength Respiratory Rate 16 Respiratory Pattern Normal Blood Pressure 152/87 H Blood Pressure Mean 108 Blood Pressure Source Monitor Blood Pressure Position Semi-Fowlers Blood Pressure Location Left Arm Baseline BP 137/86 Pulse Ox 100 Oxygen Delivery Method Room Air Positive well nourished and well developed General Appearance ED: well developed and NAD HEENT Reports moist mucous membranes Negative for trauma or tenderness Eyes EOMs intact bilaterally Neck no lymphadenopathy, supple and no JVD Chest Wall inspection of chest normal Resp normal respiratory effort and clear to auscultation bilaterally Cardio regular rate, regular rhythm, no murmurs and peripheral pulses 2+ throughout GI normal to inspection, nondistended, normoactive bowel sounds, non-tender and no masses Palpation: soft Back/Spine normal to inspection Extremity normal to inspection General Extremety ED: Negative for tenderness Neuro oriented x3 and no sensory deficits noted Sensorium / Orientation: alert Motor Exam: strength 5/5 throughout Psych mental status grossly normal Skin no rashes or lesions noted MDM MDM MDM Narrative Medical decision making narrative: Patient is presenting secondary to a missed . Patient will be dispositioned to obstetrics for D&C Lab Data Labs: Laboratory Results - last 24 hr 05/20/21 05/20/21 05/20/21 09:20 09:20 09:20 WBC 11.5 H RBC 5.32 Hgb 13.9 Hct 42.4 MCV 79.7 L MCH 26.1 L MCHC 32.8 RDW Std Deviation 39.4 RDW Coeff of Philip 13.6 Plt Count 289 MPV 10.3 PT 12.8 INR 1.0 APTT 29.5 Blood Type A POSITIVE Antibody Screen NEGATIVE Discharge Plan Dx/Rx/DC Orders Clinical Impression: Missed Disposition Disposition: Acute Care Hospital [facility] Discharge Date/Time: 05/20/21 09:27
--- NOTE | 2021-05-20 09:30 | POC_PTH ---
PATIENT: MINDY WEBBER [place] [facility] [place][id number] AGE/SX: 30/F ROOM: RE05/20/[address]: Dr. Monica Francisco MD : 1990 BED: DIS: 05/20/2021 SPEC #: [id number] RECD: 05/20/21 10:49 STATUS: ANA STEPHENSON #: [id number] VIDAL: 05/20/21 09:[address]: Monica Francisco DEPT: SURGICAL PATHOLOGY RECD BY: Meghan Arreaga ENTERED: 05/22/21 09:40 SP TYPE: PROD CONC OTHR DR: Dr. Jefe Veliz MD Tissues: Product of conception, NOS Procedures: Surgery Specimen Level IV HEADER OPERATION: Suction dilation and curettage PRE-OP DIAGNOSIS: Missed TISSUE SUBMITTED: Products of conception MICROSCOPIC DIAGNOSIS Endometrium, curettage: Chorionic villi, decidualized stroma and trophoblastic cells consistent with products of conception. AM:darlin 05/23/2021 MICROSCOPIC DESCRIPTION Slides are reviewed. GROSS DESCRIPTION Received fresh for Anora study labeled with the patient's name is a specimen designated products of conception. The specimen consists of multiple fragments of hemorrhagic soft tissue that in aggregate measure 10 x 9 x 2 cm. A portion of tissue is submitted for Anora study. No tissue is identified. Billboard Mechanic tissue is submitted in two cassettes. / SJ:darlin 05/22/21 TC:5 CPT: 95717
[2021-05-20 09:45] LABS: Hematocrit 42.4 % (37-47); Hemoglobin 13.9 g/dL (12.0-15.0); Mean Corp Hgb Conc 32.8 g/dL (32-36); Mean Corpuscular Hgb 26.1 pg (27.0-32.0); Mean Corpuscular Volume 79.7 fL (81-99); Mean Platelet Vol. 10.3 fl (6.2-12.0); Platelet Count 289 K/mm3 (150-450); Prothrombin Time (Protime)PT. 12.8 SECONDS (11.7-14.9); RBC Distribution Width CV 13.6 % (11.6-14.6); RBC Distribution Width SD 39.4 fl (35.1-43.9); Red Blood Count 5.32 M/mm3 (4.2-5.4); White Blood Count 11.5 K/mm3 (4.4-11.0)
[2021-05-20 09:46] LABS: Partial Thromboplast Time 29.5 Seconds (24.1-36.2)
[2021-05-20] MEDS: Lidocaine 1% (20 ml mdv) 20 ML Vial (09:46)
[2021-05-20] MEDS: Oxytocin 10 UNITS/ML Vial (09:56)
[2021-05-23 14:26] LABS: Pathology Specimen OB SEE PATHOLOGY REPORT
== END 2021-05-20 11:26 | disposition home or self-care (01) ==
LOC: ED 09:09 → SDC 09:13 → AC 09:14
PROVIDERS: Emergency Provider Emergency Medicine; PCP Family Medicine; Visit Provider Obstetrics & Gynecology
PROC: (CPT 59820; principal; 2021-05-20 09:30)
DX: O02.1 Missed abortion (principal); O88.211 Thromboembolism in pregnancy, first trimester; I26.99 Other pulmonary embolism without acute cor pulmonale; O99.281 Endocrine, nutritional and metabolic diseases complicating pregnancy, first trimester; E05.90 Thyrotoxicosis, unspecified without thyrotoxic crisis or storm; O99.211 Obesity complicating pregnancy, first trimester; E66.9 Obesity, unspecified; O99.341 Other mental disorders complicating pregnancy, first trimester; F32.9 Major depressive disorder, single episode, unspecified; Z79.01 Long term (current) use of anticoagulants; Z79.899 Other long term (current) drug therapy; Z3A.13 13 weeks gestation of pregnancy
CPT/HCPCS: 01965; 59820; 85027; 85610; 85730; 86850; 86900; 86901; 88305; 99284; J7120

== ENCOUNTER → 2021-09-27 09:29 | Outpatient (CLI) | payer MEDICAID, SELFPAY ==
--- NOTE | 2021-09-27 09:30 | US_ITS ---
STUDY: ULTRASOUND BREAST - LEFT REASON FOR EXAM: Female, 30 years old. Upper inner quadrant left breast pain. TECHNIQUE: Axial and longitudinal images of the LEFT breast were performed with a high resolution ultrasound transducer. # OF IMAGES: 26 COMPARISON: Diagnostic bilateral mammogram performed today. FINDINGS: LEFT Breast: Targeted examination of the upper inner quadrant of the left breast showed dense fibroglandular tissue. No dominant cystic or solid masses. US/Breast Limited Unilateral IMPRESSION: No ultrasonographic abnormality of the left breast. ASSESSMENT CATEGORY: BIRADS Category 2: Benign. A letter regarding these results will be sent to the patient by the facility within 30 days. Electronically Signed: Yehuda Conroy MD at 11:43 EST , Service support ,
--- NOTE | 2021-09-27 09:30 | BI_ITS ---
MAMMOGRAPHY - BILATERAL DIAGNOSTIC REASON FOR EXAM: Female, 30 years old. Upper inner quadrant left breast pain. PERTINENT HISTORY: Non-contributory. TECHNIQUE: Digital examination. Mediolateral oblique (MLO) and craniocaudad (CC) views of both breasts were obtained. CAD: COMPARISON: Targeted left breast ultrasound performed today. FINDINGS: Breast Composition: There are scattered areas of fibroglandular density. There are no dominant masses or suspicious calcifications. Targeted left breast ultrasound showed no abnormality. No other significant abnormalities are identified. BI/DIAG MAMM W/CAD, BILAT IMPRESSION: No abnormality on the bilateral diagnostic mammogram or targeted left breast ultrasound. Follow-up mammography at age 40 or earlier if symptoms persist. ASSESSMENT CATEGORY: BIRADS Category 2: Benign. A letter regarding these results will be sent to the patient by the facility within 30 days. FOLLOW UP RECOMMENDATION: Begin screening mammograms at 40 years of age. (N) Approximately 10% of breast cancers are not detected by mammography. A normal mammogram should not delay biopsy of a clinically suspicious abnormality. Electronically Signed: Yehuda Conroy MD at 11:44 EST , Service support ,
== END ==
PROVIDERS: PCP Family Medicine; Visit Provider Obstetrics & Gynecology
DX: N64.4 Mastodynia (principal)
CPT/HCPCS: 76642; 77062; 77066; G0279

== ENCOUNTER 2021-11-06 14:17 | Outpatient (CLI) | payer MEDICAID, SELFPAY ==
[2021-11-06 15:33] LABS: Amphetamine Urine VISTA NEGATIVE (<1000 ng/mL); Barbiturate Urine VISTA NEGATIVE (< 200 ng/mL); Benzodiazepine Urine VISTA NEGATIVE (< 200 ng/mL); Cocaine Urine VISTA NEGATIVE (< 300 ng/mL); Ecstacy Urine VISTA NEGATIVE (< 500 ng/mL); Methadone Urine VISTA NEGATIVE (< 300 ng/mL); PCP Urine VISTA NEGATIVE (< 25 ng/mL); Protein, Urine (Random) 7.1 mg/dL (<11.9); Protein:Creat Ratio 113 mg/g CRE (0-200); THC Urine VISTA NEGATIVE (< 50 ng/mL); Vista UDS pH Range 5
== END 2021-11-06 23:59 | disposition short-term general hospital (02) ==
LOC: LABSPEC 14:19
PROVIDERS: PCP Family Medicine; Visit Provider Obstetrics & Gynecology
DX: O09.90 Supervision of high risk pregnancy, unspecified, unspecified trimester (principal); Z87.59 Personal history of other complications of pregnancy, childbirth and the puerperium; Z3A.00 Weeks of gestation of pregnancy not specified
CPT/HCPCS: 80307; 82570; 84156; 87086; 87088

== ENCOUNTER 2021-11-14 11:47 | Emergency (ER) | payer MEDICAID, SELFPAY ==
[2021-11-14 11:48] VITALS: BP 164/93; PULSE 91; RESP 16; TEMP 36.3; O2SAT 98; BMI 36.8
--- NOTE | 2021-11-14 12:28 | EKG12_ITS ---
Test Reason : CHEST TIGHTNESS Blood Pressure : / mmHG Vent. Rate : 085 BPM Atrial Rate : 085 BPM P-R Int : 136 ms QRS Dur : 084 ms QT Int : 364 ms P-R-T Axes : 041 029 018 degrees QTc Int : 433 ms Normal sinus rhythm Normal ECG Confirmed by LISA BRASWELL, KAIDEN ([id number]), clinical editor AUDREY FISCHER ([id number]) on 11/15/2021 11:44:37 AM Referred By: YUSUF Confirmed By:KAIDEN GONZALEZ MD
[2021-11-14 12:41] LABS: Absolute Lymphocyte Count 3.05 X10^3/uL (0.83-4.51); Absolute Neutrophil Count 5.9 X10^3/uL (2.0-7.7); Basophil# 0.06 X10^3/uL; Basophil% 0.6 % (0-1); Eosinophil# 0.09 X10^3/uL; Eosinophils% 0.9 % (0-5); Hematocrit 42.2 % (37-47); Hemoglobin 14.2 g/dL (12.0-15.0); Lymphocyte # 3.05 X10^3/ul (0.83-4.51); Lymphocyte % 31.4 % (19-41); Mean Corp Hgb Conc 33.6 g/dL (32-36); Mean Corpuscular Hgb 27.5 pg (27.0-32.0); Mean Corpuscular Volume 81.8 fL (81-99); Mean Platelet Vol. 9.8 fl (6.2-12.0); Monocyte# 0.57 X10^3/uL; Monocyte% 5.9 % (0-10); NRBC Flagged by Analyzer 0 % (0-5); Neutrophil % 60.7 % (47-70); Platelet Count 243 K/mm3 (150-450); RBC Distribution Width CV 12.5 % (11.6-14.6); RBC Distribution Width SD 37.1 fl (35.1-43.9); Red Blood Count 5.16 M/mm3 (4.2-5.4); White Blood Count 9.7 K/mm3 (4.4-11.0)
--- NOTE | 2021-11-14 12:45 | RAD_ITS ---
STUDY: X-RAY CHEST REASON FOR EXAM: Female, 31 years old. Upper respiratory symptoms x2 weeks, chest discomf -- 10 weeks gestation TECHNIQUE: Single AP portable view of the chest. COMPARISON: Comparison is made with prior study dated 04/17/2021. FINDINGS: The lungs are clear and expanded. There is no demonstrated pleural abnormality. Normal size heart. Normal mediastinum and vignesh. Normal visualized pulmonary arteries. Normal visualized aortic arch and descending thoracic aorta. Normal visualized thoracic spine. Normal visualized ribs, clavicles, and shoulders. There is no demonstrated abnormality of the visualized soft tissue structures of the upper abdomen. RAD/Chest 1 View (Portable) IMPRESSION: Normal x-ray examination of the chest. Electronically Signed: Byron Simental MD at 13:07 EST , Service support ,
--- NOTE | 2021-11-14 13:45 | ED.VIS.CHEST ---
HPI History of Present Illness Chief Complaint: Chest Pain Detail of Chief Complaint: Midsternal pressure sensation that is intermittent Informant: patient Onset/Context/Timing Onset: Days Activity at onset: sudden and - (Onset is not associated with activity. She does report palpitations with activity.) Timing: Intermittent (Varies from 15 minutes to 1 to 2 hours) Quality: Positive for Pressure Location: Substernal Current Severity: Gone Maximum Severity: Moderate Worsened By: Exertion, Palpation and Breathing; Not Worsened By Movement of Arm, Movement of Torso and Eating Relieved By: Nothing Associated Symptoms: Positive for Nausea Narrative Narrative: Patient is a 31-year-old woman who was diagnosed with pulmonary embolus during trimester this past summer. She subsequent had a miscarriage. She did not have a hypercoagulable work-up. She is presently . She states she is 10 weeks by gestation. She is on Lovenox. She has not missed any doses. Denies leg pain, swelling discoloration. She denies pleuritic pain. She does have upper respiratory symptoms been present for 2 weeks. She has had ill contacts. She has not been vaccinated for COVID. She does report mild intermittent headache. She does report nasal congestion and sore throat. She does have a cough which is nonproductive. Her chest discomfort is worse with coughing. She does report diarrhea. She also reports nausea and vomiting which she attributes to her . She denies rash. She has had some mild myalgias and arthralgias. Prior Similar Symptoms: No Recent Illness/Hospitalization: No CVD Risk Factors: Negative for Hypertension, Diabetes, Hypercholesterolemia, Family History 1' </=55 and Smoking PE Risk Factors: Positive for Prior DVT or PE; Negative for Recent Travel/Surgery, Recent Immobilization, Cancer and OCP + Smoking + >/=35 TAD Risk Factors: Negative for Marfan's Syndrome, Hypertension and Family History [facility] Medical History Bilateral headaches Breast pain, left Hyperthyroidism Infertility Melanoma Missed Vitamin D deficiency Home Medications citalopram 40 mg tablet 40 mg PO DAILY #30 tab 06/08/21 [Rx Last Taken Unknown] hydroxyzine pamoate 50 mg capsule 50 mg PO TID PRN #60 cap 10/11/21 [Rx Last Taken Unknown] enoxaparin 120 mg/0.8 mL subcutaneous syringe 120 mg SUBCUT Q12H #8 ml 10/17/21 [Rx Last Taken Unknown] multivitamin no.47-iron fum 27 mg-folate no.1 1 mg-dha 300 mg capsule cap PO 10/25/21 [History Last Taken Unknown] Allergy/AdvReac Type Severity Reaction Status Date / Time amoxicillin [From Augmentin] AdvReac Mild Diarrhea Verified 11/14/21 11:51 clavulanic acid AdvReac Mild Diarrhea Verified 11/14/21 11:51 [From Augmentin] Surgical History History of tonsillectomy Status post removal of thyroid nodule Social History adopted: No household members: spouse and children number of children: 2 pets and animals: Yes pets and animals: cat(s) and dog(s) Smoking Status: Never smoker second hand exposure: No alcohol intake: current substance use type: does not use what type of physical activity do you participate in: none mickie/mormon: Voodoo seatbelt use: always do you feel safe at home: Yes ROS ROS ED Constitutional Constitutional ED: Denies chills, fever(s), subjective or sweats Eyes Eyes: Denies blurry vision, change in vision or diplopia ENT ENT ED: Reports rhinorrhea and sore throat; Denies ear pain Cardiovascular Cardiovascular: Reports as per HPI; Denies orthopnea or paroxysmal nocturnal dyspnea Respiratory/Chest Respiratory/Chest: Reports cough; Denies dyspnea, dyspnea on exertion, orthopnea, paroxysmal nocturnal dyspnea or sputum Gastrointestinal Gastrointestinal: Reports diarrhea, nausea and vomiting; Denies abdominal pain Genitourinary Genitourinary ED: Reports urinary frequency; Denies dysuria or hematuria Musculoskeletal Musculoskeletal: Reports arthralgias, myalgias and neck pain Integumentary Denies rash Neurologic Neurologic: Reports headache(s); Denies paresthesias or weakness Endocrine Endocrinology: Denies polydipsia, polyphagia or polyuria Hematologic/Lymphatic Hematologic/Lymphatic: Denies easy bleeding or easy bruising EXAM Physical Exam Const Vital Signs: 11/14/21 11:48 11/14/21 12:42 Temperature 97.3 F L Temperature Source Temporal Pulse Rate 91 Respiratory Rate 16 Respiratory Effort Normal Non-Labored Blood Pressure 164/93 H Blood Pressure Mean 116 Pulse Ox 98 Oxygen Delivery Method Room Air Positive well nourished, well developed and obese General Appearance ED: well developed, NAD and other Patient is very anxious. She is fidgeting. She is rubbing her fingers and twirling her fingers. Nutritional Appearance: obese HEENT Reports TM's clear and moist mucous membranes normocephalic and atraumatic Tympanic Membrane ED: Yes TM's clear Eyes PERRL and EOMs intact bilaterally General Eye ED: Negative for pale conjunctiva or scleral icterus Neck no lymphadenopathy, supple and no JVD Chest Wall inspection of chest normal and palpation of chest normal Resp normal respiratory effort and clear to auscultation bilaterally Effort and Inspection: respiratory distress Cardio regular rate, regular rhythm, S1 normal heart sound and S2 normal heart sound GI normal to inspection, nondistended, normoactive bowel sounds, soft to palpation and non-tender Back/Spine no CVA tenderness Extremity normal to inspection Extremity Narrative: There is no asymmetry, swelling, discoloration, leg vein distention, palpable cords or tenderness along the distribution of the deep venous system. General Extremety ED: Negative for edema, pulses abnormal or tenderness General Extremity: Negative for edema or pulses abnormal Neuro oriented x3 and CN's II-XII intact bilaterally Sensorium / Orientation: awake and alert Sensory Exam: sensory level loss detected Motor Exam: strength 5/5 throughout Psych mental status grossly normal Skin no rashes or lesions noted and no wounds MDM MDM MDM Narrative Medical decision making narrative: Patient presents with upper respiratory symptoms and now has chest discomfort. Her concern is she has a PE because of prior PE. She states she is compliant with her meds. Pain is not pleuritic. She denies any other symptoms. Patient has had ill contacts. Her history is concerning for infectious cause. There is no concern for pulmonary embolus on my part. Because she is D-dimer was not obtained since it may be elevated. First trimester does not make her hypercoagulable. At 1350 that she believes she needs a CAT scan. We will have the nurse in the room when I explained her why she does not need a CAT scan. Had a lengthy discussion with the patient why CAT scan of her chest was not ordered. After explaining my reasoning and likelihood of her having a blood clot with her constellation of symptoms she acknowledged that she understood. I informed her my concern is there was greater risk of harm to the fetus because of radiation from the CAT scan and contrast versus her probability of having a blood clot which in my opinion is essentially 0. Patient states she is having difficulty explaining. I informed her that she described the discomfort sufficiently and again acknowledged that it was palpitations and this weird sensation in her chest. Lab Data Attestation: I reviewed the patient's lab results. Labs: Laboratory Results - last 24 hr 11/14/21 12:34 WBC 9.7 RBC 5.16 Hgb 14.2 Hct 42.2 MCV 81.8 MCH 27.5 MCHC 33.6 RDW Std Deviation 37.1 RDW Coeff of Philip 12.5 Plt Count 243 MPV 9.8 Immature Gran % (Auto) 0.500 Neut % (Auto) 60.7 Lymph % (Auto) 31.4 [place] % (Auto) 5.9 Eos % (Auto) 0.9 Baso % (Auto) 0.6 Absolute Neuts (auto) 5.9 Absolute Lymphs (auto) 3.05 Nucleated RBC % 0 Radiography Chest X-Ray - ED: Read by ED Physician (Single view chest x-ray reveals normal cardiac silhouette and size. Lung parenchyma is normal. [place] structures are normal.) Diagnostic Testing: Clinical Impression(s) from Imaging Studies Chest X-Ray 11/14/21 12:45 IMPRESSION: Normal x-ray examination of the chest. Electronically Signed: Byron Simental MD at 13:07 EST , Service support , EKG Initial EKG: Attestation: I personally reviewed and interpreted this EKG as follows: Interpretation: Sinus Rhythm (Sinus rhythm rate of 85. EKG is normal. MS interval is 136 ms. QRS duration 84 ms. QT duration 364 ms. [place] is normal.) Discharge Plan Triage Chief Complaint: Chest Pain ED Provider: Ankit Ayala Dx/Rx/DC Orders Clinical Impression: Upper respiratory infection with cough and congestion, Chest pain Instructions: ED Pain, Acute, Uncertain Cause, ED URI, Viral, No Abx (Adult) Prescriptions: No Action citalopram [Celexa] 40 mg tablet 40 mg PO DAILY Qty: 30 RF: 12 PNV-DHA 27 mg iron-1 mg -300 mg capsule PO RF: 0 enoxaparin [Lovenox] 120 mg/0.8 mL syringe 120 mg subcut Q12H Qty: 8 RF: 0 hydroxyzine pamoate [Vistaril] 50 mg capsule 50 mg PO TID PRN (Reason: anxiety) Qty: 60 RF: 2 Primary Care Provider: Jefe Veliz Referrals: Jefe Veliz MD [Primary Care Provider] - 1 Week if not improving Disposition Disposition: Home, Self Care
== END 2021-11-14 14:15 | disposition home or self-care (01) ==
PROVIDERS: Emergency Provider Emergency Medicine; PCP Family Medicine; Visit Provider Emergency Medicine
DX: O99.511 Diseases of the respiratory system complicating pregnancy, first trimester (principal); J06.9 Acute upper respiratory infection, unspecified; O99.891 Other specified diseases and conditions complicating pregnancy; R07.89 Other chest pain; Z3A.10 10 weeks gestation of pregnancy; Z86.711 Personal history of pulmonary embolism; O99.214 Obesity complicating childbirth
CPT/HCPCS: U0003; 71045; 85025; 87635; 93005; 99282; A4216; U0005

== ENCOUNTER 2021-11-17 11:53 | Outpatient (CLI) | payer MEDICAID, SELFPAY ==
[2021-11-17 12:51] LABS: Absolute Lymphocyte Count 2.61 X10^3/uL (0.83-4.51); Absolute Neutrophil Count 6.8 X10^3/uL (2.0-7.7); Basophil# 0.04 X10^3/uL; Basophil% 0.4 % (0-1); Eosinophil# 0.13 X10^3/uL; Eosinophils% 1.3 % (0-5); Hematocrit 39.6 % (37-47); Hemoglobin 13.2 g/dL (12.0-15.0); Lymphocyte # 2.61 X10^3/ul (0.83-4.51); Lymphocyte % 25.7 % (19-41); Mean Corp Hgb Conc 33.3 g/dL (32-36); Mean Corpuscular Hgb 27.5 pg (27.0-32.0); Mean Corpuscular Volume 82.5 fL (81-99); Mean Platelet Vol. 10.4 fl (6.2-12.0); Monocyte# 0.58 X10^3/uL; Monocyte% 5.7 % (0-10); NRBC Flagged by Analyzer 0 % (0-5); Neutrophil # 6.75 X10^3/uL (2.7-7.7); Neutrophil % 66.4 % (47-70); Platelet Count 221 K/mm3 (150-450); RBC Distribution Width CV 12.5 % (11.6-14.6); RBC Distribution Width SD 37.3 fl (35.1-43.9); White Blood Count 10.2 K/mm3 (4.4-11.0)
[2021-11-17 13:00] LABS: NATERA MAILED SPECIMEN
[2021-11-17 13:25] LABS: ALB/GLOB Ratio 0.8 RATIO (0.9-2.4); AST(SGOT) 11 U/L (15-37); Alanine Aminotransfer ALT/SGPT 22 U/L (13-56); Albumin, Serum 3.1 g/dL (3.2-5.0); Alkaline Phosphatase 77 U/L (45-117); Anion Gap 7 (5-15); BUN 9 mg/dL (7-18); BUN/Creat Ratio 14.8 RATIO (10-20); Calcium,Total 8.7 mg/dL (8.5-10.1); Chloride 106 mmol/L (98-107); Creatinine, Serum 0.61 mg/dL (0.55-1.02); EST Glomerular Filtration Rate 122 mL/min (>60); Est Glom Filt Rate - Afr Amer 148 mL/min (>60); Globulin 3.8 g/dL (2.2-4.2); Glucose 102 mg/dL (74-106); Glucose Challenge Gest 1H 50g 102 mg/dL (70-140); Potassium 3.7 mmol/L (3.5-5.1); Protein, Total 6.9 g/dL (6.4-8.2); Sodium Level 139 mmol/L (136-145); T4 Free Direct 0.96 ng/dL (0.76-1.46); Thyroid Stim Hormone (TSH) 1.69 uIU/mL (0.358-3.74)
[2021-11-17 13:52] LABS: HIV - WCH Non-Reactive (Nonreactive); Hepatitis B Surface Antigen Non-Reactive (Nonreactive); Hepatitis C Antibody Non-Reactive (Nonreactive); Rubella IgG Reactive (Nonreactive); Syphilis Antibodies Non-reactive
[2021-11-20 16:08] LABS: Thyroid Peroxidase AB 9 IU/mL (0-34)
[2021-11-20 16:09] LABS: Thyroglobulin Antibody < 1.0 IU/mL (0.0-0.9)
== END 2021-11-17 23:59 | disposition short-term general hospital (02) ==
LOC: LAB 11:55
PROVIDERS: PCP Family Medicine; Visit Provider Obstetrics & Gynecology
DX: O09.91 Supervision of high risk pregnancy, unspecified, first trimester (principal); Z3A.00 Weeks of gestation of pregnancy not specified; O99.281 Endocrine, nutritional and metabolic diseases complicating pregnancy, first trimester; E05.90 Thyrotoxicosis, unspecified without thyrotoxic crisis or storm; O99.211 Obesity complicating pregnancy, first trimester; E66.9 Obesity, unspecified; Z87.59 Personal history of other complications of pregnancy, childbirth and the puerperium
CPT/HCPCS: 80053; 82950; 84439; 84443; 85025; 86376; 86703; 86762; 86780; 86800; 86803; 86850; 86900; 86901; 87340

== ENCOUNTER 2021-12-08 12:54 | Outpatient (CLI) | payer MEDICAID, SELFPAY ==
[2021-12-08 13:57] LABS: NATERA MAILED SPECIMEN
== END 2021-12-08 23:59 | disposition short-term general hospital (02) ==
LOC: LAB 12:55
PROVIDERS: PCP Family Medicine; Visit Provider Obstetrics & Gynecology
DX: Z34.82 Encounter for supervision of other normal pregnancy, second trimester (principal); Z3A.00 Weeks of gestation of pregnancy not specified
CPT/HCPCS: 36415

== ENCOUNTER 2022-01-08 13:51 | Outpatient (CLI) | payer MEDICAID, SELFPAY ==
[2022-01-08 15:40] LABS: Cholesterol 260 mg/dL (200); High Density Lipoprotein 60 mg/dL; Triglycerides 425 mg/dL
== END 2022-01-08 23:59 | disposition home or self-care (01) ==
LOC: BIMLAB 13:51
PROVIDERS: PCP Internal Medicine; Referring Provider Internal Medicine; Visit Provider Internal Medicine
DX: Z87.59 Personal history of other complications of pregnancy, childbirth and the puerperium (principal)
CPT/HCPCS: 36415; 80061

== ENCOUNTER → 2022-03-20 | Outpatient (CLI) | payer MEDICAID, SELFPAY ==
[2022-03-20 17:12] LABS: Glucose Challenge Gest 1H 50g 93 mg/dL (70-140)
== END | disposition home or self-care (01) ==
LOC: LAB 15:28
PROVIDERS: Nurse Practitioner Women's Health; PCP Internal Medicine; Referring Provider Obstetrics & Gynecology; Visit Provider Obstetrics & Gynecology
DX: Z13.1 Encounter for screening for diabetes mellitus (principal)
CPT/HCPCS: 36415; 82950

== ENCOUNTER → 2022-04-19 | Outpatient (CLI) | payer MEDICAID, SELFPAY ==
--- NOTE | 2022-04-19 12:01 | US_ITS ---
STUDY: OBSTETRICAL ULTRASOUND - BIOPHYSICAL PROFILE REASON FOR EXAM: Female, 31-year-old. Nonreactive NST. LMP: 08/31/2021 PRIOR ULTRASOUND: None. TECHNIQUE: Transabdominal TECHNICAL QUALITY: Adequate. FINDINGS: There is a single intrauterine fetus. The fetus is in a cephalic presentation. There is demonstrated cardiac activity with a heart rate of 125 bpm. There is a normal amniotic fluid volume. The largest amniotic fluid pocket measures 5.7 cm. The amniotic fluid index (ROSALBA) is 12.0 cm. The placenta is posterior in location and is not low lying. There are Grade 1 placental changes. Age by LMP: 33 weeks, 0 days. SILVIA by LMP: 06/07/2022. BIOPHYSICAL PROFILE: Breathing Movements (FBM): 0 Gross Body Movements (GBM): 2 Tone (FT): 2 Amniotic Fluid Volume (AFV): 2 TOTAL SCORE: 6 / 8 US/Biophysical Prof W/O Non Stres IMPRESSION: biophysical profile of 6/8. Lack of breathing movement. Electronically Signed: Byron Simental MD at 13:10 EDT ,
== END | disposition home or self-care (01) ==
LOC: US 12:00
PROVIDERS: PCP Internal Medicine; Referring Provider Obstetrics & Gynecology; Visit Provider Obstetrics & Gynecology
DX: O28.8 Other abnormal findings on antenatal screening of mother (principal)
CPT/HCPCS: 76819

== ENCOUNTER 2022-04-26 11:05 | Outpatient (CLI) | payer MEDICAID, SELFPAY ==
[2022-04-26 11:27] VITALS: BP 139/80; PULSE 105; TEMP 37.5
[2022-04-26 11:28] VITALS: PULSE 110; O2SAT 97
[2022-04-26 11:39] VITALS: BMI 40.4
--- NOTE | 2022-04-26 11:45 | US_ITS ---
STUDY: OBSTETRICAL ULTRASOUND - BIOPHYSICAL PROFILE REASON FOR EXAM: Female, 31 years old. decel in office during NST PRIOR ULTRASOUND: 6.16.22. TECHNIQUE: Transabdominal TECHNICAL QUALITY: Adequate. FINDINGS: There is a single intrauterine fetus. The fetus is in a cephalic presentation. There is demonstrated cardiac activity with a heart rate of 133 bpm. There is a normal amniotic fluid volume. The largest amniotic fluid pocket measures 6.6 cm. The amniotic fluid index (ROSALBA) is 17.8 cm. The placenta is fundal in location and posterior in location and is not low lying.. There are Grade 1 placental changes. Age by LMP: 34 weeks, 0 days. SILVIA by LMP: 8.4.22. . BIOPHYSICAL PROFILE: Breathing Movements (FBM): 2 Gross Body Movements (GBM): 2 Tone (FT): 2 Amniotic Fluid Volume (AFV): 2 TOTAL SCORE: US/Biophysical Prof W/O Non Stres IMPRESSION: Normal biophysical profile of 06/11. There is a single live intrauterine with a heart rate of 133 bpm. Electronically Signed: Renzo Styles MD at 14:08 EDT ,
--- NOTE | 2022-04-26 13:27 | OB.TRI.PN ---
Progress Notes Progress Note: Patient presents for triage evaluation secondary to variable in the office FHT: 140 Moderate variability reactive no decelerations category I tracing [employer]: no regular Contractions Assessment and plan: variable Reactive NST, 08/13 bpp reassuring maternal and status patient discharged to home to follow-up as scheduled. See problem list details for additional plan information. Charges/Coding Procedures Urinary/Genital [id number]: [id number] non-stress test Interp Assessment & Plan (1) Variable heart rate decelerations, antepartum: COMMENT: seen in triage, bpp 06/11
== END 2022-04-26 13:40 | disposition home or self-care (01) ==
LOC: WPOUT 11:13 → WP 11:14
PROVIDERS: PCP Internal Medicine; Referring Provider Obstetrics & Gynecology; Visit Provider Obstetrics & Gynecology
DX: O36.8390 Maternal care for abnormalities of the fetal heart rate or rhythm, unspecified trimester, not applicable or unspecified (principal); Z3A.00 Weeks of gestation of pregnancy not specified
CPT/HCPCS: 59025; 59050; 76819; 99218; G0378

== ENCOUNTER → 2022-05-14 | Outpatient (CLI) | payer MEDICAID, SELFPAY | END | disposition home or self-care (01) | LOC: LABSPEC 13:35 | PROVIDERS: PCP Internal Medicine; Visit Provider Obstetrics & Gynecology | DX: O09.90 Supervision of high risk pregnancy, unspecified, unspecified trimester (principal); Z3A.00 Weeks of gestation of pregnancy not specified | CPT/HCPCS: 87077; 87081; 87186 ==

== ENCOUNTER → 2022-05-25 | Outpatient (CLI) | payer MEDICAID, SELFPAY ==
[2022-05-25 09:07] LABS: Protein, Urine (Random) 84.8 mg/dL (<11.9); Protein:Creat Ratio 290 mg/g CRE (0-200)
== END | disposition home or self-care (01) ==
LOC: LABSPEC 08:49
PROVIDERS: PCP Internal Medicine; Visit Provider Obstetrics & Gynecology
DX: R80.9 Proteinuria, unspecified (principal)
CPT/HCPCS: 82570; 84156

== ENCOUNTER → 2022-05-29 | Outpatient (CLI) | payer MEDICAID, SELFPAY ==
[2022-05-29 10:59] LABS: Absolute Lymphocyte Count 3.02 X10^3/uL (0.83-4.51); Absolute Neutrophil Count 6.6 X10^3/uL (2.0-7.7); Basophil# 0.03 X10^3/uL; Basophil% 0.3 % (0-1); Eosinophil# 0.11 X10^3/uL; Hematocrit 37.7 % (37-47); Hemoglobin 12.3 g/dL (12.0-15.0); Lymphocyte # 3.02 X10^3/ul (0.83-4.51); Lymphocyte % 28.1 % (19-41); Mean Corp Hgb Conc 32.6 g/dL (32-36); Mean Corpuscular Hgb 26.9 pg (27.0-32.0); Mean Corpuscular Volume 82.5 fL (81-99); Mean Platelet Vol. 10.7 fl (6.2-12.0); Monocyte# 0.88 X10^3/uL; Monocyte% 8.2 % (0-10); NRBC Flagged by Analyzer 0 % (0-5); Neutrophil # 6.62 X10^3/uL (2.7-7.7); Neutrophil % 61.7 % (47-70); Platelet Count 179 K/mm3 (150-450); RBC Distribution Width CV 13.7 % (11.6-14.6); Red Blood Count 4.57 M/mm3 (4.2-5.4); White Blood Count 10.7 K/mm3 (4.4-11.0)
[2022-05-29 11:12] LABS: Protein:Creat Ratio 185 mg/g CRE (0-200)
[2022-05-29 11:29] LABS: ALB/GLOB Ratio 0.6 RATIO (0.9-2.4); AST(SGOT) 15 U/L (15-37); Alanine Aminotransfer ALT/SGPT 14 U/L (13-56); Albumin, Serum 2.4 g/dL (3.2-5.0); Alkaline Phosphatase 205 U/L (45-117); Anion Gap 8 (5-15); BUN 13 mg/dL (7-18); BUN/Creat Ratio 19.4 RATIO (10-20); Calcium,Total 9.3 mg/dL (8.5-10.1); Chloride 108 mmol/L (98-107); Creatinine, Serum 0.67 mg/dL (0.55-1.02); EST Glomerular Filtration Rate 109 mL/min (>60); Est Glom Filt Rate - Afr Amer 132 mL/min (>60); Globulin 4.1 g/dL (2.2-4.2); Glucose 80 mg/dL (74-106); Potassium 4.2 mmol/L (3.5-5.1); Protein, Total 6.5 g/dL (6.4-8.2); Sodium Level 138 mmol/L (136-145)
== END | disposition home or self-care (01) ==
LOC: PAVLAB 10:40
PROVIDERS: PCP Internal Medicine; Referring Provider Nurse Practitioner Women's Health; Visit Provider Nurse Practitioner Women's Health
DX: O26.899 Other specified pregnancy related conditions, unspecified trimester (principal); R51.9 Headache, unspecified
CPT/HCPCS: 36415; 80053; 82570; 84156; 85025

== ENCOUNTER 2022-05-30 19:15 | Inpatient (IN) | payer MEDICAID, SELFPAY ==
[2022-05-30 19:36] VITALS: TEMP 36.3
[2022-05-30 19:39] VITALS: PULSE 117; O2SAT 97
[2022-05-30 19:42] VITALS: BMI 42.0
[2022-05-30 19:43] VITALS: BP 139/92; PULSE 118
[2022-05-30] MEDS: Lactated Ringers 1,000 ML 50 ML IV (19:45)
[2022-05-30 20:09] LABS: Absolute Lymphocyte Count 3.13 X10^3/uL (0.83-4.51); Absolute Neutrophil Count 8.7 X10^3/uL (2.0-7.7); Basophil# 0.03 X10^3/uL; Basophil% 0.2 % (0-1); Eosinophil# 0.06 X10^3/uL; Eosinophils% 0.5 % (0-5); Hematocrit 36.7 % (37-47); Hemoglobin 12.2 g/dL (12.0-15.0); Lymphocyte # 3.13 X10^3/ul (0.83-4.51); Lymphocyte % 24.7 % (19-41); Mean Corp Hgb Conc 33.2 g/dL (32-36); Mean Corpuscular Hgb 27.5 pg (27.0-32.0); Mean Corpuscular Volume 82.8 fL (81-99); Mean Platelet Vol. 11.2 fl (6.2-12.0); Monocyte# 0.66 X10^3/uL; Monocyte% 5.2 % (0-10); NRBC Flagged by Analyzer 0 % (0-5); Neutrophil % 68.7 % (47-70); Platelet Count 200 K/mm3 (150-450); RBC Distribution Width CV 13.4 % (11.6-14.6); RBC Distribution Width SD 39.6 fl (35.1-43.9); Red Blood Count 4.43 M/mm3 (4.2-5.4); White Blood Count 12.7 K/mm3 (4.4-11.0)
[2022-05-30] MEDS: miSOPROStol 25 MCG TABLET PO (20:24)
[2022-05-30 20:46] LABS: AST(SGOT) 23 U/L (15-37); Alanine Aminotransfer ALT/SGPT 18 U/L (13-56); Creatinine, Serum 0.88 mg/dL (0.55-1.02); EST Glomerular Filtration Rate 80 mL/min (>60); Est Glom Filt Rate - Afr Amer 96 mL/min (>60); Estimated Creatinine Clearance 90.08 ml/min; Uric Acid 6.7 mg/dL (2.6-6.0)
[2022-05-30 21:25] LABS: Protein, Urine (Random) 49.6 mg/dL (<11.9); Protein:Creat Ratio 312 mg/g CRE (0-200)
[2022-05-31] VITALS (43 sets, daily range): BP systolic 112–172; BP diastolic 57–93; PULSE 75–112; RESP 16; TEMP 36.1–37.8; O2SAT 94–98
[2022-05-31] MEDS: miSOPROStol 25 MCG TABLET PO ×2 (01:05→05:14)
[2022-05-31] MEDS: Cefazolin 2 GM in 0.9% Normal Saline 100 ML IV (04:47)
[2022-05-31] MEDS: Acetaminophen 500 MG Tablet PO ×2 (04:49→15:00)
[2022-05-31] MEDS: 0.9% Normal Saline Single 100 ML IV.SOLN. INTRA-UTER (08:08)
[2022-05-31] MEDS: Citalopram 40 MG TABLET PO (08:26)
[2022-05-31] MEDS: Oxytocin 30 units/NS 500 ml 30 UNITS/500 ML IV.SOLN IV (09:20)
[2022-05-31] MEDS: LACTATED RINGERS 500 ML 999 ML IV (09:43)
[2022-05-31] MEDS: Ondansetron 4 MG/2 ML Vial IV ×2 (10:46→14:50)
[2022-05-31] MEDS: fentaNYL-bupivacaine (epidural) 100 ML BAG EPIDURAL ×2 (10:50→15:00)
[2022-05-31] MEDS: Cefazolin 1 GM/50 ML BAG IV (12:43)
[2022-05-31] MEDS: Lactated Ringers 1,000 ML 200 ML IV (15:00)
[2022-05-31] MEDS: Oxytocin 30 units/NS 500 ml 30 UNITS/500 ML IV.SOLN 334 UNITS IV (16:58)
--- NOTE | 2022-05-31 18:01 | HP.PCM.OB_ITS ---
HPI - General General Date of Admission: 05/30/22 HPI Narrative MINDY WEBBER, is a 31 F who presents for IOL secondary to h/o PE and abnormal NIPT screen Maternal Data Information SILVIA Calculator Estimated Delivery Date Method Current WG Current Estimate 06/06/22 LMP (Certain) 39w 1d Other Estimates 06/07/22 Ultrasound #1 39w 0d PFSH PFSH Medical History (Updated 05/30/22 @ 19:57 by Pauline Ramsey) Anxiety and depression Bilateral headaches Blood clotting disorder Breast pain, left Gestational HTN Hyperthyroidism Melanoma Missed Vitamin D deficiency Home Medications multivitamin no.47-iron fum 27 mg-folate no.1 1 mg-dha 300 mg capsule (PNV-DHA) 1 cap PO QHS 10/25/21 [History Last Taken 05/29/22 21:00] citalopram 40 mg tablet (Celexa) 40 mg PO DAILY anxiety 04/26/22 [History Last Taken 05/30/22 10:00] enoxaparin 120 mg/0.8 mL subcutaneous syringe (Lovenox) 120 mg subcut Q12H 04/26/22 [History Last Taken 05/30/22 10:00] omeprazole 20 mg tablet,delayed release 20 mg PO DAILY heartburn 04/26/22 [History Last Taken 05/30/22 10:00] hydroxyzine pamoate 50 mg capsule (Vistaril) 50 mg PO PRN PRN anxiety 05/30/22 [History Last Taken 05/30/22 10:00] Allergy/AdvReac Type Severity Reaction Status Date / Time amoxicillin [From Augmentin] AdvReac Mild Diarrhea Verified 05/29/22 10:23 clavulanic acid AdvReac Mild Diarrhea Verified 05/29/22 10:23 [From Augmentin] Surgical History History of tonsillectomy Status post removal of thyroid nodule Social History adopted: No household members: spouse and children number of children: 2 pets and animals: Yes pets and animals: cat(s) and dog(s) Smoking Status: Never smoker second hand exposure: No alcohol intake: current substance use type: does not use what type of physical activity do you participate in: none mickie/buddhist: Episcopal seatbelt use: always do you feel safe at home: Yes History 4 Elective abortions Hx Para 2 Spontaneous abortions 1 Hx # Term Pregnancies Ectopic pregnancies Hx # Pregnancies Multiple births # of living children 2 Past Pregnancies Del. Date Name GA/Weeks Outcome Route Bth Weight Infant Gen Labor Lgth Anesthesia Del Locatn Provider FOB 02/22/17 Abimael live - full term 8# 2oz Male 20 hr epid ural Gurpreet Wang Ab 07/31/18 Altagracia live - full term 9# 1oz Female 7 hr epid ural Woodvilledorian Berger Delivery Date: 02/22/17 Last Updated by: Martha Henriquez NP, BREAST WORKER-C 2 degree tear/VAVB. Gest hypertension. Delivery Date: 07/31/18 Last Updated by: Martha Henriquez NP, BREAST WORKER-C Gest hypertension/induced Visit Details Expected Delivery Route/Plan IOL 39 Labor Preferences- CB/BF classes: no labor support person: Ab labor intervention preferences: [] pain management options preferred: epidural cut cord/dad catch: yes : yes PP control planned: discussed:vasectomy planned discussed possible routes of delivery and associated risks: [] special requests: [] Plans Covid status: discussed Flu vaccine: no Tdap vaccine: Rhogam: na LARC form signed: [] movement and labor precautions reviewed. Problem list reviewed and updated with the most current plan of care details and appropriate orders placed. Relevant counseling for the gestational age provided. Continue routine care and follow up unless otherwise noted in visit notes/problem list details OB Flowsheet Initial Weight: 242 lb Date -?-?-?-?-?-?-?-?-?-?-?-?- EGA Weight BP Urine Prot -?-?-?-?-?-?-?-?-?-?-?-?- Glucose FHR FuHt Pres Dilation -?-?-?-?-?-?-?-?-?-?-?-?- Effaced St Visit Note 11/06/21 -?-?-?-?-?-?-?-?-?-?-?-?- 9w 5d 242 lb 6 oz (+6 oz) 132/88 -?-?-?-?-?-?-?-?-?-?-?-?- 170 -?-?-?-?-?-?-?-?-?-?-?-?- SM- CRL 2.3 cm c ons with LMP 11/28/21 -?-?-?-?-?-?-?-?-?-?-?-?- 12w 6d 245 lb (+3 lb) 132/92 -?-?-?-?-?-?-?-?-?-?-?-?- 160 -?-?-?-?-?-?-?-?-?-?-?-?- SM- no vb crampi ng doing well 12/26/21 -?-?-?-?-?-?-?-?-?-?-?-?- 16w 6d 248 lb (+6 lb) 156/70 130/68 Negative -?-?-?-?-?-?-?-?-?-?-?-?- Negative 160 -?-?-?-?-?-?-?-?-?-?-?-?- MH-Active IUP on US. No VB, LOF. NIPT high risk:1:17 for triploidy. Pawan with MFM is 3/2 w probable amniocentesis. Very anxious since had loss in May 2021/triploidy. Tried to reassure. Enc to call with further questions. 01/12/22 -?-?-?-?-?-?-?-?-?-?-?-?- 19w 2d 248 lb (+6 lb) 136/78 Negative -?-?-?-?-?-?-?-?-?-?-?-?- Negative 150 -?-?-?-?-?-?-?-?-?-?-?-?- SM- no vb crampi ng discussed nl anatomy patient declined amnio 02/20/22 -?-?-?-?-?-?-?-?-?-?-?-?- 24w 6d 250 lb (+8 lb) 128/70 Trace -?-?-?-?-?-?-?-?-?-?-?-?- Negative 153 -?-?-?-?-?-?-?-?-?-?-?-?- MH-No VB, LOF. G ood FM. States had normal echo last week. Had growth US yesterday. Will check for reports. 03/20/22 -?-?-?-?-?-?-?-?-?-?-?-?- 28w 6d 250 lb 6 oz (+8 lb 6 oz) 128/68 -?-?-?-?-?-?-?-?-?-?-?--?- 145 30 -?-?-?-?-?-?-?-?-?-?-?-?- SM- no vb lof go od fm no regular ctx, discussed echo at 34 and mfm consult regarding blood thinner around ddelivery 04/05/22 -?-?-?-?-?-?-?-?-?-?-?-?- 31w 1d 254 lb (+12 lb) 160/88 -?-?-?-?-?-?-?-?-?-?-?-?- 130 32 -?-?-?-?-?--?-?-?-?-?-?-?- SM- no vb lof go od fm n oregualr ctx 04/20/22 -?-?-?-?-?-?-?-?-?-?-?-?- 33w 2d 260 lb 2 oz (+18 lb 2 oz) 138/77 -?-?-?-?-?-?-?-?-?-?-?-?- -?-?-?-?-?-?-?-?-?-?-?-?- 05/03/22 -?-?-?-?-?-?-?-?-?-?-?-?- 35w 1d 264 lb 4 oz (+22 lb 4 oz) 128/78 Negative -?-?-?-?-?-?-?-?-?-?-?-?- Negative 140 -?-?-?-?-?-?-?-?-?-?-?-?- JV- nst reactive no complaints today. 05/10/22 -?-?-?-?-?-?-?-?-?-?-?-?- 36w 1d 264 lb (+22 lb) -?-?-?-?-?-?-?-?-?-?-?-?- 140 -?-?-?-?-?-?-?-?-?-?-?-?- SM- NST needs gb s next week 05/14/22 -?-?-?-?-?-?-?-?-?-?-?-?- 36w 5d 265 lb 4 oz (+23 lb 4 oz) 120/82 Trace -?-?-?-?-?-?-?-?-?-?-?-?- Negative 149 -?-?-?-?-?-?-?-?-?-?-?-?- SM- no vb lof go od fm no regular ctx 05/25/22 -?-?-?-?-?-?-?-?-?-?-?-?- 38w 2d 271 lb (+29 lb) 136/84 2+ -?-?-?-?-?-?-?-?-?-?-?-?- Negative 140 130 0.5 -?-?-?-?-?-?-?-?-?-?-?-?- 0 -4 SM- n ovb lof good fm no reuglar ctx intermittent headaches discussed preeclampsia preacutions and IOL next 05/29/22 -?-?-?-?-?-?-?-?-?-?-?-?- 38w 6d 140/90 137/88 133/85 Negative -?-?-?-?-?-?-?-?-?-?-?-?- Negative 130 -?-?-?-?-?-?-?-?-?-?-?-?- SM- seen for bp fu, repeat WNL and neg ur protein nl preeclampsia labs, intermittent DOMINGUEZ nothing persistent, keep IOL 05/30/22 -?-?-?-?-?-?-?-?-?-?-?-?- 39w 0d 268 lb (+26 lb) 139/92 172/89 136/77 132/74 151/87 131/75 147/93 145/84 154/91 146/86 150/85 131/66 122/61 127/64 112/65 113/57 115/60 132/67 133/73 129/63 166/74 136/57 155/67 145/65 135/68 -?-?-?-?-?-?-?-?-?-?-?-?- -?-?-?-?-?-?-?-?-?-?-?-?- NST FHR Rate Baby A Baseline: 130 Variability:: Moderate Accelerations:: 15 x 15 Decelerations:: None NST Reactive:: Yes FHR Category:: Category I Uterine Activity:: irregular ROS Constitutional Constitutional: Reports systems reviewed and no addt'l complaints, except as documented Eyes Eyes: Denies change in vision ENT HEENT: Reports systems reviewed and no addt'l complaints, except as documented; Denies headache(s) Cardiovascular Cardiovascular: Reports systems reviewed and no addt'l complaints, except as documented; Denies chest pain or dyspnea Respiratory/Chest Respiratory/Chest: Reports systems reviewed and no addt'l complaints, except as documented Gastrointestinal Gastrointestinal: Reports systems reviewed and no addt'l complaints, except as documented; Denies abdominal pain Genitourinary Genitourinary: Reports systems reviewed and no addt'l complaints, except as documented, contractions Details: present (irregular) and movement Details: present; Denies dysuria or genital lesions Musculoskeletal Musculoskeletal: Reports systems reviewed and no addt'l complaints, except as documented Neurologic Neurologic: Reports systems reviewed and no addt'l complaints, except as documented Endocrine Endocrinology: Reports systems reviewed and no addt'l complaints, except as documented Vital Signs Vital Signs Vital Signs: 05/30/22 19:36 05/30/22 19:39 05/30/22 19:39 Temperature 97.3 F L Temperature Source Pulse Rate 117 H Blood Pressure BP Systolic BP Diastolic Pulse Ox 97 05/30/22 19:43 05/30/22 19:43 05/31/22 00:28 Temperature 97.2 F L Temperature Source Pulse Rate 118 H Blood Pressure 139/92 H BP Systolic 139 BP Diastolic 92 Pulse Ox 05/31/22 00:28 05/31/22 00:28 05/31/22 00:33 Temperature Temperature Source Pulse Rate 100 Blood Pressure 172/89 H BP Systolic 172 BP Diastolic 89 Pulse Ox 98 05/31/22 00:33 05/31/22 00:49 05/31/22 00:49 Temperature Temperature Source Pulse Rate 103 H 100 Blood Pressure 136/77 H BP Systolic 136 BP Diastolic 77 Pulse Ox 05/31/22 04:34 05/31/22 04:35 05/31/22 04:35 Temperature 97.5 F L Temperature Source Pulse Rate 90 Blood Pressure 132/74 H BP Systolic 132 BP Diastolic 74 Pulse Ox 05/31/22 04:35 05/31/22 07:52 05/31/22 07:52 Temperature Temperature Source Pulse Rate 86 Blood Pressure 151/87 H BP Systolic 151 BP Diastolic 87 Pulse Ox 97 05/31/22 07:52 05/31/22 07:52 05/31/22 08:11 Temperature 97.0 F L Temperature Source Temporal Pulse Rate Blood Pressure 131/75 H BP Systolic 131 BP Diastolic 75 Pulse Ox 05/31/22 08:11 05/31/22 09:25 05/31/22 09:26 Temperature Temperature Source Temporal Pulse Rate 83 Blood Pressure 147/93 H BP Systolic 147 BP Diastolic 93 Pulse Ox 05/31/22 09:26 05/31/22 09:25 05/31/22 09:25 Temperature 98.1 F Temperature Source Pulse Rate 88 Blood Pressure BP Systolic BP Diastolic Pulse Ox 98 05/31/22 10:18 05/31/22 10:18 05/31/22 10:19 Temperature Temperature Source Pulse Rate 104 H Blood Pressure 145/84 H BP Systolic 145 BP Diastolic 84 Pulse Ox 95 05/31/22 10:19 05/31/22 10:24 05/31/22 10:24 Temperature Temperature Source Pulse Rate 106 H 104 H Blood Pressure 154/91 H BP Systolic 154 BP Diastolic 91 Pulse Ox 05/31/22 10:23 05/31/22 10:28 05/31/22 10:28 Temperature Temperature Source Pulse Rate 84 Blood Pressure BP Systolic BP Diastolic Pulse Ox 97 98 05/31/22 10:29 05/31/22 10:29 05/31/22 10:33 Temperature Temperature Source Pulse Rate 89 93 Blood Pressure 146/86 H BP Systolic 146 BP Diastolic 86 Pulse Ox 05/31/22 10:33 05/31/22 10:34 05/31/22 10:34 Temperature Temperature Source Pulse Rate 90 Blood Pressure 150/85 H BP Systolic 150 BP Diastolic 85 Pulse Ox 97 05/31/22 10:38 05/31/22 10:38 05/31/22 10:40 Temperature Temperature Source Pulse Rate 100 Blood Pressure 131/66 H BP Systolic 131 BP Diastolic 66 Pulse Ox 98 05/31/22 10:40 05/31/22 10:44 05/31/22 10:44 Temperature Temperature Source Pulse Rate 100 101 H Blood Pressure 122/61 H BP Systolic 122 BP Diastolic 61 Pulse Ox 05/31/22 10:43 05/31/22 10:48 05/31/22 10:48 Temperature Temperature Source Pulse Rate 96 Blood Pressure BP Systolic BP Diastolic Pulse Ox 98 98 05/31/22 10:49 05/31/22 10:49 05/31/22 10:53 Temperature Temperature Source Pulse Rate 97 96 Blood Pressure 127/64 H BP Systolic 127 BP Diastolic 64 Pulse Ox 05/31/22 10:53 05/31/22 10:54 05/31/22 10:54 Temperature Temperature Source Pulse Rate 95 Blood Pressure 112/65 BP Systolic 112 BP Diastolic 65 Pulse Ox 97 05/31/22 10:58 05/31/22 10:58 05/31/22 10:58 Temperature 99.9 F H Temperature Source Pulse Rate 94 Blood Pressure BP Systolic BP Diastolic Pulse Ox 98 05/31/22 10:59 05/31/22 10:59 05/31/22 11:04 Temperature Temperature Source Pulse Rate 94 Blood Pressure 113/57 L 115/60 BP Systolic 113 115 BP Diastolic 57 60 Pulse Ox 05/31/22 11:04 05/31/22 11:09 05/31/22 11:09 Temperature Temperature Source Pulse Rate 100 96 Blood Pressure 132/67 H BP Systolic 132 BP Diastolic 67 Pulse Ox 05/31/22 12:41 05/31/22 12:41 05/31/22 12:41 Temperature 97.3 F L Temperature Source Pulse Rate 75 Blood Pressure 133/73 H BP Systolic 133 BP Diastolic 73 Pulse Ox 05/31/22 15:05 05/31/22 15:05 05/31/22 15:05 Temperature Temperature Source Temporal Pulse Rate 94 Blood Pressure 129/63 H BP Systolic 129 BP Diastolic 63 Pulse Ox 05/31/22 15:05 05/31/22 17:03 05/31/22 17:03 Temperature 97.2 F L Temperature Source Pulse Rate 112 H Blood Pressure 166/74 H BP Systolic 166 BP Diastolic 74 Pulse Ox 05/31/22 17:09 05/31/22 17:17 05/31/22 17:17 Temperature 100.0 F H Temperature Source Pulse Rate 111 H Blood Pressure 136/57 H BP Systolic 136 BP Diastolic 57 Pulse Ox 05/31/22 17:32 05/31/22 17:32 05/31/22 17:48 Temperature Temperature Source Pulse Rate 108 H Blood Pressure 155/67 H 145/65 H BP Systolic 155 145 BP Diastolic 67 65 Pulse Ox 05/31/22 17:48 Temperature Temperature Source Pulse Rate 106 H Blood Pressure BP Systolic BP Diastolic Pulse Ox Weight Weight: 268 lb Body Mass Index (BMI) 42.0 Physical Exam Const alert, oriented x3, no apparent distress and healthy appearing HEENT normocephalic and moist oral mucous membranes Head and Scalp: atraumatic Neck full ROM, no lymphadenopathy, supple and thyroid normal General: trachea midline Lymph Lymphatic: no lymphadenopathy noted Chest inspection of chest normal Resp normal respiratory effort Cardio regular rate GI normal to inspection, nondistended, normoactive bowel sounds, soft to palpation and non-tender Inspection: gravid external exam normal Manual OB Exam: estimated gestational size appropriate, presentation cephalic, dilated, effaced and station Extremity normal to inspection General Extremity: Negative for edema Skin no rashes or lesions noted Neuro no focal motor deficits and deep tendon reflexes 2+ bilaterally Motor Exam: strength 5/5 throughout and clonus absent Psych mental status grossly normal Labs Labs Labs: Blood Type A POSITIVE Antibody Screen NEGATIVE Hct 36.7 % (37-47) L Hgb 12.2 g/dL (12.0-15.0) Obstetrics US Syphilis Total Ab Non-reactive Rubella IgG Antibody Reactive (Nonreactive) Hep Bs Antigen Non-Reactive (Nonreactive) Chlamydia DNA (GAVIN) Negative (Negative) Neisseria gonorrhoeae DNA (GAVIN) Negative (Negative) HIV 1&2 Antibody Non-Reactive (Nonreactive) Glucose 1 Hr 50 gm 93 mg/dL (70-140) Rhogam given: No Assessment & Plan (1) Supervision of high risk , antepartum: COMMENT: PRR SILVIA 06/06/22 girl [place] PC: Altagracia Varghese. Spouse: Lefty er (2) : QUALIFIERS: Weeks of gestation: 38 weeks Qualified Code(s): Z3A.38 - 38 weeks gestation of COMMENT: nipt high risk, carrier and afp declined. (3) Hyperthyroidism: COMMENT: check labs w NOB labs; no meds, antibody testing ordered. previous nodule removed. (4) Pulmonary emboli: QUALIFIERS: Pulmonary embolism type: multiple subsegmental (without acute cor pulmonale) Qualified Code(s): I26.94 - Multiple subsegmental pulmonary emboli without acute cor pulmonale COMMENT: lovenox 120 BID (5) Obesity affecting in first trimester: COMMENT: nl GCT at [facility] (6) History of congenital or genetic condition: COMMENT: 05/2021 D&C for missed AB. Triploidy girl (7) Abnormal genetic test during : COMMENT: 1:17 risk trisomy 13, 18. [facility] appt 01/03 nl anatomy, plan echo, declined amniocentesis. growth US q4wks starting @24 wks/sched w [facility].04/23 nl growth, 05/21 nl growht, karyotype for chromosome anaysis to [facility]. (8) Ventricular septal defect (VSD) of fetus affecting management of : COMMENT: In discussing VSD along with high risk CFDNA for triploidy/trisomy 18/trisomy 13. 1-2 months consult with Sheet Metal Worker Maintenance. Per [facility] treatment center on 05/01/22 tiny VSD. declined amniocentesis (9) GBS (group B Streptococcus carrier), +RV culture, currently : COMMENT: ancef, nonanaphylactic pcn allergy (10) Encounter for induction of labor: COMMENT: plan holding lovenox x 24 hours and plan pit and fb plan SCDs in labor (11) Anxiety and depression: COMMENT: celexa, counseling encouraged. Vistaril prn/02/20 has not started. Enc to try prn. PLAN: Plan plan IOL fb pitocin
[2022-05-31] MEDS: Methylergonovine 0.2 MG/ML Ampul IM (18:10)
--- NOTE | 2022-05-31 18:11 | EX.PCM.OBRPT ---
Assessment & Plan (1) Supervision of high risk , antepartum: COMMENT: PRR SILVIA 06/06/22 girl [place]ley[place] PC: Altagracia Varghese. Spouse: Ab (2) : QUALIFIERS: Weeks of gestation: 38 weeks Qualified Code(s): Z3A.38 - 38 weeks gestation of COMMENT: nipt high risk, carrier and afp declined. (3) Hyperthyroidism: COMMENT: check labs w NOB labs; no meds, antibody testing ordered. previous nodule removed. (4) Pulmonary emboli: QUALIFIERS: Pulmonary embolism type: multiple subsegmental (without acute cor pulmonale) Qualified Code(s): I26.94 - Multiple subsegmental pulmonary emboli without acute cor pulmonale COMMENT: lovenox 120 BID (5) Obesity affecting in first trimester: COMMENT: nl GCT at [facility] (6) History of congenital or genetic condition: COMMENT: 05/2021 D&C for missed AB. Triploidy girl (7) Abnormal genetic test during : COMMENT: 1:17 risk trisomy 13, 18. [facility] appt 01/03 nl anatomy, plan echo, declined amniocentesis. growth US q4wks starting @24 wks/sched w [facility].04/23 nl growth, 05/21 nl growht, karyotype for chromosome anaysis to [facility]. (8) Ventricular septal defect (VSD) of fetus affecting management of : COMMENT: In discussing VSD along with high risk CFDNA for triploidy/trisomy 18/trisomy 13. 1-2 months consult with Pocket Grinder Operator. Per [facility] treatment center on 05/01/22 tiny VSD. declined amniocentesis (9) GBS (group B Streptococcus carrier), +RV culture, currently : COMMENT: ancef, nonanaphylactic pcn allergy (10) Encounter for induction of labor: COMMENT: plan holding lovenox x 24 hours and plan pit and fb plan SCDs in labor (11) Anxiety and depression: COMMENT: celexa, counseling encouraged. Vistaril prn/02/20 has not started. Enc to try prn. Maternal Data Information SILVIA Calculator Estimated Delivery Date Method Current WG Current Estimate 06/06/22 LMP (Certain) 39w 1d Other Estimates 06/07/22 Ultrasound #1 39w 0d Vaginal Delivery Operative Information Date of Procedure: 05/31/22 Pre-Operative Diagnosis: IAL Post-Operative Diagnosis: same Surgery / Procedure Performed: Spontaneous Vaginal Delivery Type of Anesthesia: Epidural Special Medications: none Estimated Blood Loss: 250 Fluids Replaced: crystalloid Findings Description of Procedure: Patient began pushing and delivered the head in the LISA presentation. The head was delivered atraumatically. The anterior and posterior shoulders delivered without complication followed by the rest of the and the infant was placed on the maternal abdomen. cord clamped and cut. Cord was clamped and cut and gentle traction was applied to the cord and the placenta delivered spontaneously immediately following it was noted to be intact with three-vessel cord. The perineum and vagina were inspected and noted to have no laceration. EBL was 250cc Patient and infant tolerated delivery well. Presentation: LISA Amniotic Membrane Rupture Type: Artificial Amniotic Fluid Description: Clear Placental Delivery Description: Spontaneous Placenta Disposition: [facility] Cord Vessel Description: 3 Vessels Cord Entanglement: None Delayed Cord Clamping: Yes Post Vaginal Delivery Medications Given After Delivery: IV Pitocin Episiotomy Description: None Laceration: None Complication Complications: None Procedures Urinary/Genital [id number]: [id number] Vaginal Delivery [facility]
--- NOTE | 2022-05-31 18:15 | DCINST_ITS ---
Discharge Instructions Diet Discharge Diet: No restrictions Activity Discharge Activity: Return to Normal Activity, May Drive, May Shower and May Take a Tub Bath (in 4 weeks) May resume sexual activity in: 6-8 weeks (after seen by OB provider) Weight Bearing Status: Full weight bearing Lifting Restrictions: none Dressing / Incision Call your doctor if you observe: Fever of 101 or Higher, Inability to urinate, Using more than 1 pad per hour (for more than 2 hours in a row or more), Shortness of breath, Dizziness, Chest pain and - (headache not controlled with tylenol, change in vision) Follow Up Care When: in 6 weeks for visit, call the office to make the appointment. If you had elevated blood pressures call the office to be seen within 1 week. Test Results: Test results from this visit will be discussed in further detail at your follow- up appointment, if applicable. Discharge Plan Admission Admit Date/Time: 05/30/22 19:15 Attending Provider: Radha Shaver Primary Care Provider: Charles Bond Discharge Orders/Prescriptions Prescriptions: No Action PNV-DHA 27 mg iron-1 mg -300 mg capsule 1 cap PO QHS omeprazole 20 mg Tablet,Delayed Release (Dr/Ec) 20 mg PO DAILY citalopram [Celexa] 40 mg tablet 40 mg PO DAILY enoxaparin [Lovenox] 120 mg/0.8 mL syringe 120 mg subcut Q12H hydroxyzine pamoate [Vistaril] 50 mg capsule 50 mg PO PRN PRN (Reason: anxiety) Referrals / Follow Up: Charles Bond MD [Primary Care Provider] - Disposition Disposition (needs filled in before D/C Order can be placed): Home, Self Care
[2022-05-31] MEDS: 0.9% Saline Lock 10 ML Syringe IV (19:36)
[2022-05-31] MEDS: Acetaminophen 500 MG Tablet 1000 MG PO (20:00)
[2022-05-31] MEDS: Prenatal Vits Tablet 1 TABLET PO (22:34)
[2022-06-01] VITALS (13 sets, daily range): BP systolic 113–136; BP diastolic 55–77; PULSE 81–102; RESP 16–18; TEMP 36–37.4; O2SAT 97
[2022-06-01] MEDS: Acetaminophen 500 MG Tablet 1000 MG PO ×3 (02:05→15:03)
[2022-06-01] MEDS: Enoxaparin 120 MG/0.8 ML Syringe SC ×2 (06:41→19:06)
--- NOTE | 2022-06-01 08:08 | PCM.PN.OB ---
Subjective Subjective Patient doing well without complaints. Tolerating PO. Ambulating and voiding without difficulty. feeding well. Denies chest pain, shortness of breath, calf pain/swelling, fevers, chills, lightheadedness. Objective Data Objective Data Vital Signs: Vital Signs Temp Pulse Resp BP Pulse Ox O2 Del Method 96.8 F L 81 16 119/70 97 Room Air 06/01/22 04:25 06/01/22 07:47 06/01/22 04:06/01/22 07:47 06/01/22 04:06/01/22 04:25 Oxygen Delivery Method Room Air Weight: 268 lb Body Mass Index (BMI) 42.0 Intake & Output: Intake and Output for Last 24 Hours 05/30/22 05/31/22 06/01/22 23:59 23:59 23:59 Intake Total 33.33 / 33.33 2556.10 / 2556.10 Output Total 500 / 500 200 / 200 Balance 33.33 / 33.33 2056.10 / 2056.10 -200 / -200 Lab / Micro Data Result Diagrams: 05/30/22 19:45 05/30/22 19:45 Micro: Microbiology 05/30/22 19:45 Nasal Secretion SARS-CoV-2 Antigen (Rapid) - Final ROS Constitutional Constitutional: Reports systems reviewed and no addt'l complaints, except as documented Cardiovascular Cardiovascular: Reports systems reviewed and no addt'l complaints, except as documented Respiratory/Chest Respiratory/Chest: Reports systems reviewed and no addt'l complaints, except as documented Gastrointestinal Gastrointestinal: Reports systems reviewed and no addt'l complaints, except as documented Physical Exam Const alert, oriented x3 and no apparent distress HEENT Head and Scalp: atraumatic Resp normal respiratory effort GI soft to palpation and non-tender Bimanual Exam - Vag & Uterus: uterus non-tender Uterus Palpation: uterus fundus firm (below Umbilicus) Assessment & Plan (1) Vaginal delivery: COMMENT: iol 39 SM girl [place] (2) Hyperthyroidism: COMMENT: check labs w NOB labs; no meds, antibody testing ordered. previous nodule removed. (3) Pulmonary emboli: QUALIFIERS: Pulmonary embolism type: multiple subsegmental (without acute cor pulmonale) Qualified Code(s): I26.94 - Multiple subsegmental pulmonary emboli without acute cor pulmonale COMMENT: lovenox 120 BID x 6 weeks PP (4) Ventricular septal defect (VSD) of fetus affecting management of : COMMENT: In discussing VSD along with high risk CFDNA for triploidy/trisomy 18/trisomy 13. 1-2 months consult with Tutoring Clinician. Per [facility] treatment center on 05/01/22 tiny VSD. declined amniocentesis (5) Anxiety and depression: COMMENT: celexa, counseling encouraged. Vistaril prn/02/20 has not started. Enc to try prn. PLAN: Plan s/p PPD # 1 1. routine post delivery care 2. breast feeding- support given 3. rh positive 4. rubella immune
[2022-06-01] MEDS: Citalopram 40 MG TABLET PO (08:09)
--- NOTE | 2022-06-01 17:15 | CASEMGMT ---
Social Work Brief Assessment Labor and Delivery Unit Patient Address:[facility] [address] [place] [address] Phone number: [phone] Date of Referral/Notification: 06.01.2022 Time of Referral:1047 Referred By: Dr. Francisco Date of Intervention: 06.01.2022 Time of Intervention: 1700 Reason for Referral: Maternal history of depression Informant: Medical record and mother of baby (MOB) Norma Rodas History: MOB is a 31-year-old female, 4 para 2 now 3 after delivering baby girl Brittanie Cano on 06/01/2022. care good starting at 9 gestation. weighed 9 pounds 4 ounces at . Apgars 5-6-9 at 1-5-10 minutes of life respectively. MOB with history of approximately 11 week loss in May 2021 (per record fetus with Triploidy 18). MOB is marred to the father of baby (FOB) Ab Youngblood and the couple now have 3 living children: infant, Abimael (02.18.2017) and Altagracia (07.31.2018). MOB reports some depression and anxiety after loss in 2020. History of anxiety. Reports stared Celexa during this , and this fiction and nonfiction prose writer noted in the chart MOB also prescribed Vistaril. MOB reports medication has been helping, and to also feel some relief in emotional distress since the baby has been more. MOB denies any history of suicidal ideation or attempts. No reported history of HI. MOB reports the FOB has some anxiety history. MOB denies any concerns with alcohol or drugs. Maternal drug screen negative ion .. No issues with reading, writing, or learning reported. MOB reports both herself and the FOB are employed. Denies any domestic violence or intimate partner violence in relationship with FOB. Assessment: MOB reports to have adequate housing, access to food, transportation, and all basic needs. Working with [facility] for medical. Denies any need for WIC. Plans to breastfeed. Reports to have all necessary supplies to care for baby. Reports plan to say on antidepressants in the timeframe. Denies need for referral to counseling. Reports to have good support from both sides of the family, and from the FOB who will have some time off of work. Denies any concerns with home going, and accepted information on mood and anxiety disorders, as well as list of counseling in the area. MOB reports anxiety was heightened during the , with though that increased due to history of loss. MOB report sot feel better now that baby is born, and knows that things are okay. No voiced concerns by nursing staff regarding parent/child interactions or bonding. MOB with good eye contact, full affect and euthymic mood. Plan: MOB and infant to discharge home, resources provided for support related to mood and anxiety disorders. No further needs requested or indicated. -LI Gray, SHIPS EQUIPMENT ENGINEER *This note was generated with [employer] software. It may contain incorrect words, spelling, and punctuation that were not noted in review of the chart prior to signing*
== END 2022-06-01 19:25 | disposition home or self-care (01) | DRG 560 ==
PROVIDERS: Admitting Provider Obstetrics & Gynecology; PCP Internal Medicine; Visit Provider Obstetrics & Gynecology
DX: O88.22 Thromboembolism in childbirth (principal); Z37.0 Single live birth; I26.94 Multiple subsegmental thrombotic pulmonary emboli without acute cor pulmonale; E05.90 Thyrotoxicosis, unspecified without thyrotoxic crisis or storm; F41.9 Anxiety disorder, unspecified; O99.284 Endocrine, nutritional and metabolic diseases complicating childbirth; O99.344 Other mental disorders complicating childbirth; O99.824 Streptococcus B carrier state complicating childbirth; F32.A Depression, unspecified; O35.8XX0 Maternal care for other (suspected) fetal abnormality and damage, not applicable or unspecified; O99.214 Obesity complicating childbirth; Z20.822 Contact with and (suspected) exposure to COVID-19; Z3A.38 38 weeks gestation of pregnancy; Z79.01 Long term (current) use of anticoagulants
CPT/HCPCS: 36415; 59025; 59050; 80053; 82565; 82570; 84156; 84450; 84460; 84550; 85025; 86850; 86900; 86901; 87426; 99218; J7120; A4216; G0378; J2405

== ENCOUNTER 2022-08-18 11:04 | Emergency (ER) | payer MEDICAID, SELFPAY ==
[2022-08-18 11:06] VITALS: BP 144/85; PULSE 85; RESP 17; TEMP 35.9; O2SAT 100; BMI 37.3
--- NOTE | 2022-08-18 11:15 | VDLE_ITS ---
Reason For Study: Pain RIGHT LEFT GSV is normal. GSV is normal. CFV is compressible, spontaneous, phasic, CFV is compressible, spontaneous, phasic, competent and demonstrates normal competent, and demonstrates normal augmentation. augmentation. FV is compressible, spontaneous, phasic, FV is compressible, spontaneous, phasic, competent and demonstrates normal competent and demonstrates normal augmentation. augmentation. POP V is compressible, spontaneous, phasic, POP V is compressible, spontaneous, phasic, competent and demonstrates normal competent and demonstrates normal augmentation. augmentation. T/P Trunk is compressible. T/P Trunk is compressible. PTV is compressible. PTV is compressible. RT PerV is compressible. LT PerV is compressible. Procedure This is a venous duplex using B-mode, color flow and spectral Doppler. Exam performed portable in ED. A preliminary report was called and/or faxed to Dr. Cordero. VL/Venous Duplex US - Jerzy Extrem Interpretation Summary No evidence for acute deep venous thrombosis bilateral lower extremities with p atent and compressible bilateral great saphenous veins. Ordering Physician: Yomaira Cordero Performed By: Evette Benjamin, GOLDY, RVT
--- NOTE | 2022-08-18 11:17 | EDS_ITS ---
HPI History of Present Illness Chief Complaint: Shortness of Breath Detail of Chief Complaint: Discomfort in both lower extremities and mild shortness of breath Informant: patient Narrative Narrative: Patient presents to the emergency department with complaint of discomfort behind her right knee as well as to the medial aspect of left calf. Patient states that she has had the discomfort for about 2 days. Patient states that she feels some mild dyspnea but she thinks that may be anxiety related to the concerned about her legs. Patient has history of PE a year ago for which she had been on Lovenox. Patient states she was diagnosed with a PE while 7 weeks . Patient discontinued the Lovenox after she delivered her baby 2 months ago. Patient denies any chest pain. She denies hemoptysis. She denies fever. She denies cough or recent illness. Prior similar symptoms: Yes [facility] Medical History (Updated 08/18/22 @ 12:[address] Yomaira Cordero, DO) Anxiety and depression Bilateral headaches Blood clotting disorder Breast pain, left Gestational HTN Hyperthyroidism Melanoma Missed Vitamin D deficiency Home Medications multivitamin no.47-iron fum 27 mg-folate no.1 1 mg-dha 300 mg capsule (PNV-DHA) 1 cap PO QHS 10/25/21 [History Last Taken 05/29/22 21:00] omeprazole 20 mg tablet,delayed release 20 mg PO DAILY heartburn 04/26/22 [History Last Taken 05/30/22 10:00] citalopram 40 mg tablet (Celexa) 40 mg PO DAILY anxiety #90 tabs 06/11/22 [Rx Last Taken Unknown] Allergy/AdvReac Type Severity Reaction Status Date / Time amoxicillin [From Augmentin] AdvReac Mild Diarrhea Verified 08/18/22 11:04 clavulanic acid AdvReac Mild Diarrhea Verified 08/18/22 11:04 [From Augmentin] Surgical History History of tonsillectomy Status post removal of thyroid nodule Social History (Updated 07/16/22 @ 11:45 by Gisela Nunes) adopted: No household members: spouse and children number of children: 3 pets and animals: Yes pets and animals: cat(s) and dog(s) Smoking Status: Never smoker second hand exposure: No alcohol intake: current substance use type: does not use what type of physical activity do you participate in: none mickie/pentecostal: [employer] seatbelt use: always do you feel safe at home: Yes additional social history: Ab RAMIREZ ED Review of Systems ROS Unobtainable: other Constitutional Constitutional ED: Reports lethargy; Denies chills, fever(s), sweats or weight loss Eyes Eyes: Denies blurry vision, change in vision or diplopia ENT ENT ED: Denies rhinorrhea or sore throat Cardiovascular Cardiovascular: Denies chest pain, orthopnea or racing heartbeat Respiratory/Chest Respiratory/Chest: Reports dyspnea and dyspnea on exertion; Denies cough, o rthopnea or sputum Gastrointestinal Gastrointestinal: Denies abdominal pain, diarrhea, nausea or vomiting Genitourinary Genitourinary ED: Denies dysuria, hematuria or urinary frequency Musculoskeletal Musculoskeletal: Reports other Details: Bilateral leg pain ; Denies arthralgias, back pain, myalgias or neck pain Integumentary Denies abscess, Abrasions or rash Neurologic Neurologic: Denies headache(s) or weakness Psychiatric Psychiatric: Denies anxiety, depression or suicidal thoughts Endocrine Endocrinology: Denies polydipsia, polyphagia or polyuria Hematologic/Lymphatic Hematologic/Lymphatic: Denies easy bleeding, easy bruising or lymphadenopathy Allergic/Immunologic Allergic/Immunologic ED: Denies mouth swelling, tongue swelling or urticaria EXAM Physical Exam Const Vital Signs: 08/18/22 11:06 08/18/22 11:20 Temperature 96.7 F L Temperature Source Temporal Pulse Rate 85 Respiratory Rate 17 Respiratory Effort Normal Non-Labored Respiratory Depth Normal Respiratory Pattern Normal Blood Pressure 144/85 H Blood Pressure Mean 104 Pulse Ox 100 Oxygen Delivery Method Room Air Positive well nourished and well developed General Appearance ED: well developed and NAD HEENT Reports TM's clear and moist mucous membranes normocephalic and atraumatic; Negative for trauma or tenderness Tympanic Membrane ED: Yes TM's clear Eyes PERRL and EOMs intact bilaterally General Eye ED: Negative for pale conjunctiva or scleral icterus Neck no lymphadenopathy, supple and no JVD General: Negative for tenderness Chest Wall inspection of chest normal and palpation of chest normal Chest: Negative for tenderness Resp normal respiratory effort and clear to auscultation bilaterally Effort and Inspection: Negative for respiratory distress or pain with movement Auscultation: Negative for rhonchi, wheezes or diminished lung sounds Cardio regular rate, regular rhythm, S1 normal heart sound, S2 normal heart sound and no murmurs Peripheral Pulses: pulses 2+ throughout GI normal to inspection, nondistended, normoactive bowel sounds, soft to palpation, non-tender, non-distended and no masses Back/Spine no CVA tenderness and no thoracic nor lumbar tenderness Extremity normal to inspection Extremity Narrative: No edema noted of the lower extremities. I do not appreciate any ropes or cords. There is no erythema or warmth noted. She has normal pulses both lower extremities. Negative Homans' sign bilaterally. General Extremety ED: Negative for edema General Extremity: Negative for edema Neuro oriented x3, CN's II-XII intact bilaterally, no sensory deficits noted and gait normal Sensorium / Orientation: awake, alert, oriented to person, oriented to place and oriented to time Motor Exam: strength 5/5 throughout and strength abnormal Psych mental status grossly normal Skin no rashes or lesions noted and no wounds MDM MDM MDM Narrative Medical decision making narrative: Patient will have venous Dopplers of both lower extremities obtained. Venous Dopplers of both lower extremities were negative for DVT. At this point I had a long discussion with the patient and shared medical decision making. She tells me that the dyspnea that she is experiencing she feels is more anxiety related and not at all like what she had when she had her PE when she had exertional dyspnea and burning chest discomfort none of which she currently has. I did explain to her that it is within the realm of possibility to have a PE without evidence of clot in the extremities up to 30%. Given that she has no evidence of tachycardia or hypoxemia and negative DVT studies I feel the risk of PE is extremely small. Patient is in agreement and does not want to pursue CTA imaging of her chest and I am comfortable with this. Patient advised to return if chest pain, worsening shortness of breath, or condition should worsen anyway. Discharge Plan Triage Chief Complaint: Shortness of Breath ED Provider: Yomaira Cordero Dx/Rx/DC Orders Clinical Impression: Bilateral leg pain Instructions: ED Pain, Acute, Uncertain Cause Prescriptions: No Action PNV-DHA 27 mg iron-1 mg -300 mg capsule 1 cap PO QHS omeprazole 20 mg Tablet,Delayed Release (Dr/Ec) 20 mg PO DAILY citalopram [Celexa] 40 mg tablet 40 mg PO DAILY Qty: 90 2RF Primary Care Provider: Care Physician,No Primary Referrals: Jefe Castillo DO [Med Staff - [employer]] - 3-5 Days Care Physician,No Primary [Primary Care Provider] - Disposition Disposition: Home, Self Care
[2022-08-18 12:18] VITALS: RESP 16
== END 2022-08-18 12:27 | disposition home or self-care (01) ==
PROVIDERS: Emergency Provider Emergency Medicine; Visit Provider Emergency Medicine
DX: R06.02 Shortness of breath (principal); M79.605 Pain in left leg; M79.604 Pain in right leg; Z79.899 Other long term (current) drug therapy; Z86.711 Personal history of pulmonary embolism; F32.A Depression, unspecified; F41.9 Anxiety disorder, unspecified
CPT/HCPCS: 93970; 99282

== ENCOUNTER 2025-05-23 11:39 | Emergency (ER) | payer MEDICAID, SELFPAY ==
[2025-05-23 11:39] VITALS: BP 164/101; PULSE 92; RESP 16; TEMP 36.8; O2SAT 98; BMI 39.2
--- NOTE | 2025-05-23 12:25 | RAD_ITS ---
PROCEDURE: KNEE 4 OR MORE VIEWS 05/23/2025 REASON FOR EXAM: ATRAUMATIC PAIN, POSTERIOR X 4 DAYS TECHNIQUE: KNEE 4 OR MORE VIEWS COMPARISON: None FINDINGS: Four views of the left knee demonstrate normal mineralization of the osseous structures. There are no fractures or dislocations. Joint spaces are well preserved. There is no suprapatellar bursa effusion. No soft tissue swelling is seen. RAD/Knee 4 or More Views IMPRESSION: Unremarkable left knee. Reading Location: [id number]
--- NOTE | 2025-05-23 13:07 | ED.VIS.LOWEX ---
HPI History of Present Illness HPI Narrative: 34-year-old female atraumatic left knee pain for 2 months. Worse with standing and walking. No prior knee surgery has had pain in her knees in the past. Chief Complaint: Lower Extremity Injury Informant: patient Onset/Context/Timing Onset: Month(s) Context: Gradual Onset Timing: Continuous Quality of Pain: Dull and Aching Current Severity: Mild Maximum Severity: Mild Narrative Narrative: 34-year-old female atraumatic knee pain for months. Worse with standing or walking. No prior knee surgery she has had knee pain in the past. She played tennis in high school. Denies fever or redness. Prior similar symptoms: Yes Recent Illness/Hospitalization: No PFSH PFSH Medical History Ventricular septal defect (VSD) of fetus affecting management of Vaginal delivery Blood clotting disorder Gestational HTN Anxiety and depression Breast pain, left Missed Vitamin D deficiency Hyperthyroidism Melanoma Bilateral headaches Home Medications ?Medication ?Instructions ?Recorded ?Last Taken ?Type citalopram 40 mg tablet 40 mg PO DAILY for anxiety #90 11/24/24 Unknown Rx TABLETS hydroxyzine pamoate 25 mg capsule 25 mg PO BID PRN anxiety #30 caps 11/24/24 Unknown Rx (Vistaril) Allergy/AdvReac Type Severity Reaction Status Date / Time amoxicillin (From Augmentin) AdvReac Mild Diarrhea Verified 05/23/25 11:39 clavulanic acid (From AdvReac Mild Diarrhea Verified 05/23/25 11:39 Augmentin) Surgical History Status post removal of thyroid nodule History of tonsillectomy Social History adopted: No household members: spouse and children number of children: 3 pets and animals: Yes pets and animals: cat(s) and dog(s) Smoking Status: Never smoker second hand exposure: No alcohol intake: current substance use type: does not use what type of physical activity do you participate in: none mickie/alevism: Jewish seatbelt use: always do you feel safe at home: Yes additional social history: Ab RAMIREZ ROS ED ROS Narrative Denies recent illness. Constitutional Constitutional ED: Denies chills or fever(s) Eyes Eyes: Denies blurry vision ENT ENT ED: Denies ear pain Cardiovascular Cardiovascular: Denies chest pain Respiratory/Chest Respiratory/Chest: Denies cough Gastrointestinal Gastrointestinal: Denies abdominal pain Genitourinary Genitourinary ED: Denies dysuria Musculoskeletal Musculoskeletal: Denies arthralgias Integumentary Denies abscess Neurologic Neurologic: Denies headache(s) Psychiatric Psychiatric: Denies anxiety Endocrine Endocrinology: Denies polydipsia Hematologic/Lymphatic Hematologic/Lymphatic: Denies easy bleeding Allergic/Immunologic Allergic/Immunologic ED: Denies mouth swelling EXAM Physical Exam Narrative Exam Narrative: Well-appearing 34-year-old female. Vital signs stable afebrile. Accompanied by her . H EENT exam normal. Lungs clear. Heart regular rhythm no murmur. Rate 90. Abdomen soft nontender. Moving all 4 extremities. Upper and lower extremities neurovascular intact. Normal strength and sensation. Left knee no effusion. No swelling or redness. Has full flexion extension. Does have crepitance. Normal in appearance. No septic joint. Hip and ankle and calf are nontender. No edema or cords. Normal dorsi plantarflexion. Normal DP pulse. Knee exam is consistent with chronic inflammation. Const Vital Signs: 05/23/25 11:39 Temperature 98.2 F Temperature Source Oral Pulse Rate 92 Respiratory Rate 16 Blood Pressure 164/101 H Blood Pressure Mean 122 Pulse Ox 98 Oxygen Delivery Method Room Air Positive well nourished and well developed; Negative for cachectic, contractures or unkempt General Appearance ED: well developed and NAD; Negative for unkempt, cachectic or contractures Nutritional Appearance: Negative for cachectic HEENT Reports moist mucous membranes normocephalic and atraumatic Eyes PERRL Neck full ROM and supple Chest Wall inspection of chest normal and palpation of chest normal Resp normal respiratory effort, no retractions and clear to auscultation bilaterally Cardio regular rate, regular rhythm, S1 normal heart sound and S2 normal heart sound GI non-tender, non-distended and no masses Back/Spine no CVA tenderness Extremity normal to inspection and full ROM Extremity Narrative: Crepitance left knee. No effusion. No septic joint. Full flexion extension. ACL PCL, MCL and LCL are intact. Neuro oriented x3, CN's II-XII intact bilaterally and no sensory deficits noted Sensorium / Orientation: alert, oriented to person, oriented to place and oriented to time Motor Exam: strength 5/5 throughout Psych mental status grossly normal Appearance: Negative for unkempt Skin no wounds Lesions: no lesions Rashes: no rashes MDM MDM MDM Narrative Medical decision making narrative: 34-year-old female 2-month history of knee pain. I think it is from inflammation. She has no acute injury. Ligaments and tendons are intact. X-ray was obtained shows no acute process. Ice, rest, anti-inflammatories if not improving consider orthopedic follow-up for knee joint injection. Patient is comfortable with the plan. History & Record Review Discussion w/independent historian: Patient and Family Radiography Diagnostic Testing: Clinical Impression(s) from Imaging Studies Knee X-Ray 05/23/25 12:25 IMPRESSION: Unremarkable left knee. Reading Location: [facility] Left knee x-ray, 4 views, interpreted by myself and the radiologist. Shows no effusion. No fracture. No dislocation. No acute abnormality. Discharge Plan Triage Chief Complaint: Lower Extremity Injury ED Provider: Jarrod Johnson Dx/Rx/DC Orders Clinical Impression: Acute knee pain Instructions: ED Arthralgia Prescriptions: No Action citalopram 40 mg tablet 40 mg PO DAILY Qty: 90 4RF hydroxyzine pamoate [Vistaril] 25 mg capsule 25 mg PO BID PRN (Reason: anxiety) Qty: 30 1RF Primary Care Provider: Care Physician,No Primary Referrals: Izaiah Guevara DO [Med Staff - Active Staff] - 1-2 Weeks Care Physician,No Primary [Primary Care Provider] - Activity Restrictions/Additional Instructions: The x-ray looks good. You probably have inflammation in your knee. Ice 30 minutes to an hour each time 3-5 times a day. Motrin for pain and swelling. 600 mg 3 times a day. Tylenol for pain. Rest. This should progressively improve. If not follow-up with one of the local orthopedic doctors to talk to them about a knee joint injection of lidocaine and steroid. Print Language: French Disposition Disposition: Home, Self Care
[2025-05-23 13:09] VITALS: BP 141/99; PULSE 91; RESP 16; TEMP 36.6; O2SAT 100
== END 2025-05-23 13:12 | disposition home or self-care (01) ==
PROVIDERS: Emergency Provider Emergency Medicine; Visit Provider Emergency Medicine
DX: M25.562 Pain in left knee (principal)
CPT/HCPCS: 73564; 99282